=== PATIENT | female | born 1945 | race Caucasian/White ===

== ENCOUNTER 2021-10-21 14:16 | Outpatient (CLI) | payer MEDICARE, SELFPAY ==
[2021-10-21 14:38] LABS: Basophils Absolute Auto 0.1 K/mm3 (0.0-0.1); Basophils Percent Auto 1.4 % (0.2-1.2); Eosinophils Absolute Auto 0.1 K/mm3 (0-0.3); Eosinophils Percent Auto 1.1 % (0-4.4); Hematocrit 44.1 % (37.0-47.0); Hemoglobin 13.7 g/dL (12.0-15.0); Immature Granulocyte Absolute 0.01 K/mm3 (0.00-0.031); Immature Granulocyte Percent A 0.1 % (0-0.5); Lymphocytes Absolute Auto 2.01 K/mm3 (0.9-3.2); Lymphocytes Percent Auto 25.3 % (18.3-44.2); Mean Corpuscular HGB Conc 31.1 g/dl (32-36); Mean Corpuscular Hemoglobin 29.8 pg (26-34); Mean Corpuscular Volume 96.1 fl (80-100); Monocytes Absolute Auto 0.6 K/mm3 (0.1-0.6); Monocytes Percent Auto 7.9 % (2.6-8.5); Neutrophils Absolute Auto 5.1 K/mm3 (1.3-6.7); Neutrophils Percent Auto 64.2 % (45.5-73.1); Platelet Count Result 402 k/mm3 (150-375); Red Blood Count 4.59 M/mm3 (4.2-5.4); Red Cell Distribution Width 12.7 % (11.5-14.5)
[2021-10-21 16:07] LABS: CRP < 0.5 mg/dL (<1.0)
[2021-10-21 16:14] LABS: Iron 96 ug/dL (37-170)
[2021-10-21 16:23] LABS: Percent Iron Saturation 25 % (20-50)
[2021-10-21 16:37] LABS: Erythrocyte Sedimentation Rate 15 mm/hr (0-20)
== END 2021-10-21 14:17 | disposition home or self-care (01) ==
LOC: ANHLAB 14:18
PROVIDERS: PCP Family Medicine; Visit Provider Internal Medicine Hematology & Oncology
DX: D47.3 Essential (hemorrhagic) thrombocythemia (principal)
CPT/HCPCS: 36415; 82728; 83540; 83550; 85025; 85652; 86140

== ENCOUNTER 2022-06-28 14:54 | Observation (INO) | payer MEDICARE, SELFPAY ==
[2022-06-28] VITALS (11 sets, daily range): BP systolic 116–132; BP diastolic 64–95; PULSE 72–95; RESP 12–18; TEMP 36.4–36.8; O2SAT 95–98
--- NOTE | ~2022-06-28 | XR_ITS ---
XR chest 2V DATE: 06/28/2022 18:25 INDICATION: Cough TECHNIQUE: AP and lateral views COMPARISON: 01/22/2009 two-view chest FINDINGS: Normal heart size. Aortic calcification and mild tortuosity. No hilar or mediastinal enlarg ement. Bilateral hyperinflation, increased retrosternal airspace and relative flattening the diaphragm, cons istent with COPD. No pulmonary infiltrate or consolidation, pleural effusion or pulmonary vascular congestion or pneumo thorax is detected. Diffuse osteopenia. Degenerative spurring and scoliosis of the thoracic and lumbar spine. IMPRESSION: COPD Aortic atherosclerosis Diffuse osteopenia Reviewed, dictated and finalized at location A. E IDENTIFIER
--- NOTE | ~2022-06-28 | CT_ITS ---
EXAMINATION: CT brain wo con DATE: 06/28/2022 17:18 INDICATION: Altered mental state. History of dementia. TECHNIQUE: Computed tomography (CT) of the head was performed without intravenous contrast. The mA wa s adjusted according to patient size. Iterative reconstruction technique was employed. Exam dose: 60 5.33 mGy-cm total exam DLP. COMPARISON: 04/23/2019 MR brain FINDINGS: There is extensive calcification of the carotid siphon and supraclinoid internal carotid ar teries as well as bilateral vertebral artery and basilar artery calcifications. There is nonspecific diminished attenuation of the cerebral white matter, likely due to chronic small vessel ischemic changes. Moderate cerebellar and prominent central and cortical cerebral atrophy. No intracranial mass lesion or hemorrhage or cerebrovascular accident. No midline shift or mass effec t. No subdural or epidural hematoma. The orbital contents are unremarkable. Persistent metopic suture, normal variant. Diminutive right frontal sinus. Included paranasal sinuses are otherwise unremarkable. The mastoid air cells are normally developed and aerated. No fracture or bone destruction of the cranial vault. IMPRESSION: Prominent cerebral atherosclerosis Chronic small vessel ischemic changes of the cerebral white matter Moderate cerebellar and more prominent cerebral atrophy No acute intracranial finding Reviewed, dictated and finalized at [facility]. Reviewed, dictated and finalized at location A. SS NURSE
--- NOTE | 2022-06-28 17:04 | ECG_ITS ---
Measurements Intervals [place] Rate: 78 P: 66 FL: 193 QRS: 16 QRSD: 106 T: 43 QT: 410 QTc: 469 Interpretive Statements SINUS RHYTHM T-WAVE ABNORMALITY IN THE ANTERIOR LEADS NO PREVIOUS ECG AVAILABLE FOR COMPARISON Electronically Signed On 06-29-2022 17:48:11 LINUX UN[employer] ADMINISTRATOR by Naomi Welch M.D.
[2022-06-28 17:17] LABS: Basophils Absolute Auto 0.1 K/mm3 (0.0-0.1); Basophils Percent Auto 1.2 % (0.2-1.2); Eosinophils Percent Auto 0.4 % (0-4.4); Hematocrit 40.9 % (37.0-47.0); Hemoglobin 13.4 g/dL (12.0-15.0); Immature Granulocyte Absolute 0.03 K/mm3 (0.00-0.031); Immature Granulocyte Percent A 0.3 % (0-0.5); Lymphocytes Absolute Auto 2.05 K/mm3 (0.9-3.2); Mean Corpuscular HGB Conc 32.8 g/dl (32-36); Mean Corpuscular Hemoglobin 30.2 pg (26-34); Mean Corpuscular Volume 92.3 fl (80-100); Mean Platelet Volume 8.9 fl (7.4-10.4); Monocytes Absolute Auto 0.8 K/mm3 (0.1-0.6); Monocytes Percent Auto 7.1 % (2.6-8.5); Neutrophils Absolute Auto 7.8 K/mm3 (1.3-6.7); Platelet Count Result 406 k/mm3 (150-375); Red Blood Count 4.43 M/mm3 (4.2-5.4); Red Cell Distribution Width 12.8 % (11.5-14.5); White Blood Count 10.8 K/mm3 (4.5-10.0)
[2022-06-28 17:26] LABS: Partial Thromboplastin Time 25.1 SECONDS (22.3-36.8); Prothrombin Time 12.3 Seconds (11.1-14.7)
[2022-06-28 17:28] LABS: Alanine Aminotransferase 17 U/L (6-35); Albumin Level 4.4 g/dL (3.5-5.1); Alkaline Phosphatase 79 U/L (38-126); Anion Gap 5 mmol/L (8-16); Aspartate Amino Transferase 25 U/L (14-36); Bilirubin,Total 0.4 mg/dL (0.2-1.3); Blood Urea Nitrogen 12 mg/dL (7-17); Calcium 9.1 mg/dL (8.4-10.2); Carbon Dioxide 30 mmol/L (22-30); Chloride 101 mmol/L (98-107); Estimated CRCL calculation 55 ml/min; Estimated Glomerular Filt Rate > 60; Glucose 107 mg/dL (65-110); Potassium 3.4 mmol/L (3.4-5.0); Sodium 136 mmol/L (137-145)
--- NOTE | 2022-06-28 17:47 | ED.AMS ---
HPI - Altered Mental Status General Chief Complaint: Altered Mental Status <Farrah Toney PA-C - Last Filed: 06/28/22 19:27> Stated Complaint: increased dementia today <HARMEET Jaime Last Filed: 06/28/22 19:27> Time Seen by Provider: 06/28/22 17:04 <Farrah Toney PA-C - Last Filed: 06/28/22 19:27> Source: patient and EMS <HARMEET Jaime Last Filed: 06/28/22 19:27> Mode of arrival: EMS <HARMEET Jamie Last Filed: 06/28/22 19:27> Limitations: dementia <HARMEET Jaime Last Filed: 06/28/22 19:27> History of Present Illness HPI narrative: This is a 76 year old female that presents to the ER for increased confusion. Patient does have history of baseline dementia. Reportedly patient's family talked to her on the phone today and were concerned that she seemed more confused than usual so they called EMS to bring her in to be evaluated. Patient currently has no complaints. Denies fever, chest pain, shortness of breath, abdominal pain, vomiting or dysuria. <HARMEET Jaime Last Filed: 06/28/22 19:27> Related Data Home Medications: Home Medications Medication Instructions Recorded Confirmed cholecalciferol (vitamin D3) 50 2,000 unit PO DAILY 07/23/19 11/01/21 mcg (2,000 unit) capsule (Vitamin D3) aspirin 81 mg tablet,delayed 81 mg PO DAILY 11/01/21 11/01/21 release <HARMEET Jaime Last Filed: 06/28/22 19:27> Allergies/Adverse Reactions: Allergies Allergy/AdvReac Type Severity Reaction Status Date / Time alendronate sodium Allergy Unknown rash Verified 12/23/21 13:45 aspirin Allergy Unknown unknown Verified 12/23/21 13:45 Ozhmhfv-YZB-EbA Reductase Allergy Unknown Nausea And Verified 12/23/21 13:45 Inhibitor Vomiting [Mwubqqw-Nkb-Nbd Reductase Inhibitor] <HARMEET Jaime Last Filed: 06/28/22 19:27> Review of Systems Review of Systems: CONSTITUTIONAL: Denies fever ENT: Denies rhinorrhea, congestion, sore throat CARDIOVASCULAR: Denies chest pain, or edema. RESPIRATORY: Denies cough or dyspnea. GASTROINTESTINAL: Denies abdominal pain, nausea, vomiting GENITOURINARY: Denies dysuria NEUROLOGIC: Denies numbness, or weakness. <Farrah Toney PA-C - Last Filed: 06/28/22 19:27> All systems reviewed & are unremarkable except as noted in HPI and below <Farrah Toney PA-C - Last Filed: 06/28/22:27> PMFSH Past Medical History Medical History: Medical History B12 deficiency Essential (primary) hypertension Hyperlipidemia Thrombocytosis Vascular dementia Vitamin D deficiency <Farrah Toney PA-C - Last Filed: 06/28/22 19:27> Surgical History Surgical History: Surgical History H/O cataract extraction <Farrah Toney PA-C - Last Filed: 06/28/22 19:27> Family History Family History: Family History Father Cancer of unknown origin <Farrah Toney PA-C - Last Filed: 06/28/22 19:27> Social History Social History: Social History Smoking status: Current some day smoker Tobacco type: cigarettes (smokes the same cigarette for a few days when nervous) Second hand tobacco smoke exposure: No Alcohol intake: current <Farrah Toney PA-C - Last Filed: 06/28/22 19:27> Exam Narrative: GENERAL: Elderly, well-nourished, and in no acute distress. HEAD: Normocephalic, atraumatic. EYES: PERRLA and EOMI. ENT: Nares clear, no rhinorrhea or epistaxis. Mucous membranes moist. Oropharynx without tonsillar hypertrophy exudate or other lesions. Bilateral TMs pearly cox non-bulging NECK: Supple. No adenopathy or masses. CHEST: Clear to auscultation. No respiratory distress. No wheezes rales or rhonchi HEART: Regular rate and rhythm. No mu
[2022-06-28 18:06] LABS: Add Urine Microscopic? YES; Appearance Urine Clear (Clear); Bilirubin Urine Negative (Negative); Blood Urine Negative (Negative); Color Urine Light Yellow (Yellow); Glucose Urine UA Negative (Negative); Ketones Urine Trace mg/dL (Negative); Leukocyte Esterase Ur Negative LEU/UL (Negative); Nitrate Urine Negative (Negative); Protein Urine Negative (Negative); Urobilinogen Urine 0.2 mg/dL (<2.0)
[2022-06-28 18:10] LABS: Squamous Epithelial Cell Urine Moderate /hpf (Few)
[2022-06-28 18:35] LABS: Influenza A QL RT-PCR Negative (Negative); Influenza B QL RT-PCR Negative (Negative); SARS-CoV-2 RNA PCR Negative
--- NOTE | 2022-06-28 19:05 | PC.NURSE ---
Notified provider about Pt. continuing to try to get out of bed multiple times looking for her sister. No new orders at this time.
[2022-06-28] MEDS: LORazepam (*CRX) 0.5 MG TABLET PO (19:24)
--- NOTE | 2022-06-28 20:32 | PM.IMHP ---
H&P: HPI History of Present Illness Date/Time: 06/28/22 20:32 Chief Complaint: Altered mental status, unable to care for self. Narrative: This is a 76-year-old lady with a past medical history including but not limited to dementia, hypertension, anxiety, vitamin-D deficiency, vitamin-B deficiency depression, dyslipidemia, was brought into the emergency department by her sister, who is also her caregiver. The patient currently lives alone. The patient's sister prove I answer assistance with grocery shopping and managing finances. Her mental status has been worsening over the last few months. She was found wandering, looking for a dog was passed 2 months ago. She was brought in to the ER due to worsening confusion. Patient is confused and history and physical is gathered from the ED chart. Apparently, the patient does have history of dementia at baseline. Reportedly patient's family talked to her on the phone today and were concerned that she seemed more confused than usual so they called EMS to bring her in to be evaluated. Patient currently has no complaints. Denies fever, chest pain, shortness of breath, abdominal pain, vomiting or dysuria. In the emergency department the patient is stable and afebrile with the following vital signs: A temperature of 98.2? 5 x 9, pulse rate 80, respiratory rate 16, blood pressure 118/95, pulse oximetry 96% on room air. Her CBC shows a WBC of 10.8, hemoglobin 13.4, hematocrit 40.9, and a platelet count of 406. Her chemistry shows a sodium of 136, potassium 3.4, chloride 101, carbon by oxide 30, BUN 12, creatinine 0.7. Urinalysis was clear, negative for nitrate, leukocyte esterase, glucose. Chest x-ray reveals aortic atherosclerosis and diffuse osteopenia. There was no pulmonary infiltrate or consolidation, pleural effusion or pulmonary vascular congestion or pneumothorax detected. A CT of the brain shows extensive calcification of the carotid siphon and supraclinoid internal carotid arteries as well as bilateral vertebral artery and basilar artery calcifications. There is prominent cerebral atherosclerosis. Chronic small-vessel ischemic changes of the cerebral white matter. Moderate cerebral ordered more prominent cerebral atrophy. No acute intracranial finding. EKG reveals a normal sinus rhythm. Possible inferior myocardial infarction, probably old with posterior extension. No previous EKG available for comparison. Review of Systems Review of Systems: All systems reviewed & are unremarkable except as noted in HPI and below Eyes: Eyes: Reports as per HPI and Denies blurry vision ENT: Reports system reviewed and no additional complaints, except as documented, Reports as per HPI, Denies dysphagia, Denies epistaxis and Denies nasal congestion Cardiovascular: Cardiovascular: Reports as per HPI, Reports no additional cardiovascular complaints, Denies chest pain, Denies leg edema, Denies lightheadedness and Denies palpitations Respiratory: Respiratory: Reports as per HPI, Denies cough, Denies dyspnea and Denies wheezing Gastrointestinal: Gastrointestinal: Reports as per HPI, Reports no additional gastrointestinal complaints, Denies diarrhea, Denies nausea and Denies vomiting Genitourinary: Genitourinary: Reports no additional female genitourinary complaints and Denies dysuria Musculoskeletal: Musculoskeletal: Reports no additional musculoskeletal complaints, Denies back pain, Denies arthralgias and Denies neck pain Integumentary/Breasts: Skin/Breast: Reports system reviewed and no additional complaints, except as docu and Denies rash Neurologic: Reports system reviewed and no additional complaints, except as documented, Reports as per HPI, Reports confusion, Denies headache(s) and Denies numbness PMFSH Past Medical History Medical History B12 deficiency Essential (primary) hypertension Hyperlipidemia Thrombocytosis Vascular dementia Vitamin D deficiency
--- NOTE | 2022-06-28 23:12 | ADMGEN ---
This patient, Christen Gonzalez, was admitted to 3 [facility] Surg Room 304-02. Patient/family oriented to hospital policies and general routines including ID bracelet, bed and alarms, visiting hours, pain management, procedures, bathroom and other care routines, personal items, smoking policy, room service/diet, and visiting hours. Information on how to activate the Rapid Response Team has been discussed. Patient/Family are encouraged to report perceived risks to care and to ask questions if they do not understand what they are told or what they should do.
[2022-06-29 00:08] VITALS: PULSE 84; RESP 16; O2SAT 95
[2022-06-29 05:34] VITALS: BP 102/59; PULSE 82; RESP 16; TEMP 36.6; O2SAT 95
[2022-06-29 07:21] LABS: Anion Gap 5 mmol/L (8-16); Blood Urea Nitrogen 11 mg/dL (7-17); Calcium 8.8 mg/dL (8.4-10.2); Carbon Dioxide 29 mmol/L (22-30); Chloride 103 mmol/L (98-107); Estimated CRCL calculation 51 ml/min; Estimated Glomerular Filt Rate > 60; Glucose 89 mg/dL (65-110); Potassium 3.4 mmol/L (3.4-5.0); Sodium 137 mmol/L (137-145)
[2022-06-29] MEDS: ASPIRIN 81 MG ENTERIC TABLET PO (09:54)
[2022-06-29] MEDS: FLUoxetine HCL 20 MG CAPSULE PO (09:54)
[2022-06-29] MEDS: MEMANTINE 5 MG TABLET PO (09:54)
[2022-06-29 14:00] VITALS: BP 130/64; PULSE 86; RESP 18; TEMP 36.5; O2SAT 92
--- NOTE | 2022-06-29 15:01 | PM.IMPN ---
Progress Note: A&P Assessment and Plan (1) Altered mental status: Qualifiers: Altered mental status type: unspecified Qualified Code(s): R41.82 - Altered mental status, unspecified Code(s): R41.82 - Altered mental status, unspecified Status: Acute Assessment and Plan: Patient carries a known diagnosis of dementia. she lives alone but requires family support. Patient was found wandering around the streets looking for her dog who unfortunately about [address] on presentation showed moderate cerebellar and more prominent cerebral atrophy with no acute intracranial findings. Suspect this presentation of symptoms is due to worsening dementia. patient unable to care for herself independently at home. Care coordination working to arrange respite care. (2) Dementia: Qualifiers: Dementia behavioral or psychological symptom: with other behavioral disturbance Dementia severity: unspecified severity Dementia type: unspecified type Qualified Code(s): F03.918 - Unspecified dementia, unspecified severity, with other behavioral disturbance Code(s): F03.90 - Unspecified dementia, unspecified severity, without behavioral disturbance, psychotic disturbance, mood disturbance, and anxiety Status: Acute Assessment and Plan: Progressively worsening. Continue memantine. See plan as above. (3) Anxiety and depression: Code(s): F41.9 - Anxiety disorder, unspecified; F32.9 - Major depressive disorder, single episode, unspecified Status: Chronic Assessment and Plan: Likely worsened due to recent passing of the patient's dog. continue fluoxetine and lorazepam. Mood is stable at this time. (4) Essential (primary) hypertension: Code(s): I10 - Essential (primary) hypertension Status: Chronic Assessment and Plan: Blood pressures have been reasonably well controlled. Continue home regimen consisting of metoprolol succinate, hydrochlorothiazide, and lisinopril (5) B12 deficiency: Code(s): E53.8 - Deficiency of other specified B group vitamins Status: Chronic Assessment and Plan: Vitamin B12 levels within normal limits (471). Patient does not appear to be on any oral B12 supplementation Subjective Date/time seen: 06/29/22 15:01 Interval history: date of service: 06/29/2022 Christen Gonzalez is a 76-year-old female with a history of hypertension, hyperlipidemia, thrombocytosis, B12 deficiency, and vascular dementia who is seen in follow-up for altered mental status. Patient is pleasantly confused today. She did not know she was in the hospital and when I informed her that she was in the hospital, she became concerned saying she did to figure out how she could get home. She is up and walking around her room organizing her papers into piles and making her bed. Per nursing report, she has been up and active throughout the morning. she is steady on her feet. no agitation. she was moved to a seat at the nurse's station and is doing well there. Review of Systems Review of Systems: All systems reviewed & are unremarkable except as noted in HPI and below Exam Narrative: General: Well-nourished, well-appearing 76-year-old female, standing up walking around her room, comfortable, NARD Neuro: awake, alert and oriented to self only, speech clear, no focal neuro deficits HEENMT: normocephalic, atraumatic, EOMI, sclerae anicteric Respiratory: clear to auscultation bilaterally, nonlabored breathing Cardio: regular rate, regular rhythm with S1-S2 Abdomen: nondistended, normoactive bowel sounds, soft, nontender to palpation Extremities: no edema, erythema, or tenderness to palpation Skin: no rashes or lesions, warm and dry Psych: pleasantly confused Objective Data Vital Signs Vital Signs: Vital Signs - 24 hr 06/28/22 15:23 06/28/22 16:54 06/28/22 17:04 Temperature 98.2 F Pu
[2022-06-29 20:00] VITALS: PULSE 86; RESP 18; O2SAT 92
[2022-06-29 22:43] VITALS: BP 112/54; PULSE 89; RESP 18; TEMP 36.2; O2SAT 95
[2022-06-30 03:56] VITALS: BP 132/61; PULSE 97; RESP 18; TEMP 36.4; O2SAT 98
[2022-06-30 06:36] LABS: Hematocrit 41.3 % (37.0-47.0); Hemoglobin 13.3 g/dL (12.0-15.0); Mean Corpuscular HGB Conc 32.2 g/dl (32-36); Mean Corpuscular Volume 93.2 fl (80-100); Mean Platelet Volume 9.3 fl (7.4-10.4); Platelet Count Result 394 k/mm3 (150-375); Red Blood Count 4.43 M/mm3 (4.2-5.4); Red Cell Distribution Width 12.8 % (11.5-14.5)
[2022-06-30 06:50] LABS: Anion Gap 7 mmol/L (8-16); Blood Urea Nitrogen 13 mg/dL (7-17); Carbon Dioxide 29 mmol/L (22-30); Chloride 103 mmol/L (98-107); Estimated CRCL calculation 58 ml/min; Estimated Glomerular Filt Rate > 60; Glucose 89 mg/dL (65-110); Potassium 3.3 mmol/L (3.4-5.0); Sodium 139 mmol/L (137-145)
[2022-06-30] MEDS: FLUoxetine HCL 20 MG CAPSULE PO (08:22)
[2022-06-30] MEDS: MEMANTINE 5 MG TABLET PO (08:22)
[2022-06-30] MEDS: POTASSIUM CHLORIDE 20 MEQ TABLET PO (08:22)
[2022-06-30] MEDS: ENOXAPARIN 40 MG/0.4 ML SYRINGE SUB-Q (08:24)
[2022-06-30] MEDS: ASPIRIN 81 MG ENTERIC TABLET PO (08:24)
--- NOTE | 2022-06-30 08:56 | PM.DS ---
DS: Admitting Diagnosis Discharge Date 06/30/2022 Admitting Diagnosis Altered mental status DS: Discharge Diagnosis Discharge Diagnosis (1) Altered mental status: Qualifiers: Altered mental status type: unspecified Qualified Code(s): R41.82 - Altered mental status, unspecified Code(s): R41.82 - Altered mental status, unspecified Status: Acute Assessment and Plan: Patient carries a known diagnosis of dementia. She lives alone but requires family support. Patient was found wandering around the streets looking for her dog who unfortunately about [address] on presentation showed moderate cerebellar and more prominent cerebral atrophy with no acute intracranial findings. Suspect this presentation of symptoms is due to worsening dementia. Patient no longer able to care for herself independently at home. Respite care arranged per care coordination at [facility] (2) Dementia: Qualifiers: Dementia behavioral or psychological symptom: with other behavioral disturbance Dementia severity: unspecified severity Dementia type: unspecified type Qualified Code(s): F03.918 - Unspecified dementia, unspecified severity, with other behavioral disturbance Code(s): F03.90 - Unspecified dementia, unspecified severity, without behavioral disturbance, psychotic disturbance, mood disturbance, and anxiety Status: Chronic Assessment and Plan: Progressively worsening. Continue memantine. See above. (3) Anxiety and depression: Code(s): F41.9 - Anxiety disorder, unspecified; F32.9 - Major depressive disorder, single episode, unspecified Status: Chronic Assessment and Plan: Likely worsened due to recent passing of the patient's dog. Continue fluoxetine and lorazepam. Mood remained stable during admission. (4) Essential (primary) hypertension: Code(s): I10 - Essential (primary) hypertension Status: Chronic Assessment and Plan: Blood pressures reviewed and remained stable. Continue home regimen consisting of metoprolol succinate, hydrochlorothiazide, and lisinopril (5) B12 deficiency: Code(s): E53.8 - Deficiency of other specified B group vitamins Status: Chronic Assessment and Plan: Vitamin B12 levels within normal limits (471). Patient does not appear to be on any oral B12 supplementation DS: Summary Hospital Course Hospital Course: date of admission: 06/28/2022 date of discharge: 06/30/2022 Christen Gonzalez is a 76-year-old female with a history of hypertension, hyperlipidemia, thrombocytosis, B12 deficiency, and vascular dementia who presented to the emergency department on 06/28/2022 due to increased confusion per family report. Patient was found wandering around and family reports patient is not able to continue living at home independently due to safety concerns. On presentation to the ED, her vital signs were stable, she was afebrile, laboratory workup unremarkable, UA without concerns for infection, head CT with no acute findings. she was admitted to the hospitalist service for further evaluation and management. Please see above for further details. Because patient was not able to return home, respite care was arranged per care coordination. Patient was discharged to [facility] in hemodynamically stable condition on 06/30/2022. Time Spent with Patient Time attestation: Total time spent providing and/or coordinating discharge services: 38 minutes Time spent: Greater than 30 minutes Exam Narrative: General: Well-nourished, well-appearing 76-year-old female, standing up walking around her room, comfortable, NARD Neuro: awake, alert and oriented to self only, speech clear, no focal neuro deficits HEENMT: normocephalic, atraumatic, EOMI, sclerae anicteric Respiratory: clear to auscultation bilaterally, nonlabored breathing Cardio: regular rate, regular rhythm wit
[2022-07-06 11:48] LABS: Red Blood Cell Folate 660 ng/mL RBC (>280)
== END 2022-06-30 11:25 | disposition home or self-care (01) ==
LOC: ANHED 19:25 → ANH3MEDSUR 22:32
PROVIDERS: Physician Assistant; Admitting Provider Internal Medicine; Emergency Provider Emergency Medicine; PCP Family Medicine; Visit Provider Physician Assistant
DX: R41.82 Altered mental status, unspecified (principal); G31.89 Other specified degenerative diseases of nervous system; F01.50 Vascular dementia, unspecified severity, without behavioral disturbance, psychotic disturbance, mood disturbance, and anxiety; E53.8 Deficiency of other specified B group vitamins; I10 Essential (primary) hypertension; I67.2 Cerebral atherosclerosis; E78.5 Hyperlipidemia, unspecified; Z20.822 Contact with and (suspected) exposure to COVID-19; D75.839 Thrombocytosis, unspecified; Z79.899 Other long term (current) drug therapy; R90.82 White matter disease, unspecified; F41.9 Anxiety disorder, unspecified; F32.A Depression, unspecified; E55.9 Vitamin D deficiency, unspecified; R94.31 Abnormal electrocardiogram [ECG] [EKG]; M85.80 Other specified disorders of bone density and structure, unspecified site; F17.210 Nicotine dependence, cigarettes, uncomplicated; F10.90 Alcohol use, unspecified, uncomplicated; Z79.82 Long term (current) use of aspirin; I70.0 Atherosclerosis of aorta; F22 Delusional disorders; G47.00 Insomnia, unspecified
CPT/HCPCS: 36415; 51701; 70450; 71046; 80048; 80053; 81001; 82607; 82747; 85025; 85027; 85610; 85730; 87636; 93005; 96372; 99285; A9270; G0378; J1650

== ENCOUNTER 2023-02-18 10:08 | Emergency (ER) | payer MEDICARE, SELFPAY ==
[2023-02-18] VITALS (34 sets, daily range): BP systolic 112–143; BP diastolic 66–106; PULSE 60–79; RESP 12–21; TEMP 36.9; O2SAT 90–100
--- NOTE | ~2023-02-18 | XR_ITS ---
EXAMINATION: XR pelvis 1-2V INDICATION: Pelvic pain TECHNIQUE: AP view of the pelvis is obtained. COMPARISON: None available FINDINGS: Bone alignment is normal. There is no fracture. There is moderate osteoarthritis of the lef t hip and mild osteoarthritis of the right hip. Phleboliths are noted in the pelvis. There is at leas t moderate lumbar spondylosis. Calcified atherosclerosis is noted. IMPRESSION: 1. No acute osseous abnormality. Reviewed, dictated and finalized at location A.
--- NOTE | ~2023-02-18 | CT_ITS ---
EXAMINATION: CT cervical spine wo con DATE: 02/18/2023 11:10 INDICATION: Head injury TECHNIQUE: Computed tomography (CT) of the cervical spine was performed without intravenous contrast. The dose-length product (DLP) was 128.20 mGy-cm. Automated exposure control and iterative reconstruc tion technique were employed. COMPARISON: None FINDINGS: There is 1 mm of anterolisthesis of C6 on C7. There are 2 mm of retrolisthesis of C4 on C5. There is no fracture. There is moderate loss of intervertebral disc space height at C4-5, C6-7, and C7-T1. The odontoid process is intact. There is multilevel moderate facet and uncovertebral joint ost eoarthritis. There is a 4 cm nodule of the right thyroid lobe. There is moderate emphysema of the vis ualized lung apices. IMPRESSION: 1. Mild cervical spondylosis without acute findings. 2. Right thyroid nodule. Consider nonemergent thyroid ultrasound for risk stratification. Reviewed, dictated and finalized at location A. IMPRESSION: 1. Mild cervical spondylosis without acute findings. 2. Right thyroid nodule. Consider nonemergent thyroid ultrasound for risk strat ification.
--- NOTE | ~2023-02-18 | XR_ITS ---
EXAMINATION: XR elbow RT min 3V INDICATION: Right elbow pain TECHNIQUE: Four views of the right elbow are obtained. COMPARISON: None available FINDINGS: No fracture, dislocation, or subluxation. The bones, soft tissues, and joint spaces are nor mal. IMPRESSION: 1. No acute osseous abnormality. Reviewed, dictated and finalized at location A.
--- NOTE | ~2023-02-18 | CT_ITS ---
EXAMINATION: CT brain wo con INDICATION: Head injury COMPARISON: 06/28/2022 TECHNIQUE: Standard unenhanced head CT. The dose-length product (DLP) was 605.33 mGy-cm. The mA was a djusted according to patient size. Iterative reconstruction technique was employed. FINDINGS: There is no acute intraparenchymal hemorrhage. No evidence of mass lesion. No evidence of a cute infarction. There is soft tissue swelling of the right for head. There is moderate periventricul ar and subcortical hypodensity probably related to small vessel ischemic disease. There is moderate p rominence of the sulci and ventricles related to cerebral atrophy. Intracranial calcified cerebral at herosclerosis is noted. There are no extra-axial collections. There is no mass effect or midline shif t. Changes in the globes are likely from ocular lens surgery. The visualized sinuses and mastoid air cells are well aerated. IMPRESSION: 1. No acute intracranial abnormality. 2. Age related findings. Reviewed, dictated and finalized at location A.
--- NOTE | ~2023-02-18 | XR_ITS ---
EXAMINATION: XR chest 1V INDICATION: Chest pain TECHNIQUE: Frontal view of the chest is obtained. COMPARISON: 06/28/2022 FINDINGS: There is a small left pleural effusion. The lungs are free of acute opacities. No pneumotho rax is identified. The cardiomediastinal silhouette is normal. IMPRESSION: 1. Small left pleural effusion. Reviewed, dictated and finalized at location A.
--- NOTE | 2023-02-18 10:16 | ECG_ITS ---
Measurements Intervals [place] Rate: 65 P: 62 CT: 206 QRS: 8 QRSD: 99 T: 42 QT: 410 QTc: 429 Interpretive Statements SINUS RHYTHM NORMAL ECG COMPARED TO ECG 06/28/2022 17:30:07 NO SIGNIFICANT CHANGES Electronically Signed On 02-18-2023 12:41:14 CDT by Peña Ricketts M.D.
[2023-02-18 10:29] LABS: Basophils Absolute Auto 0.1 K/mm3 (0.0-0.1); Basophils Percent Auto 0.9 % (0.2-1.2); Eosinophils Absolute Auto 0.1 K/mm3 (0-0.3); Eosinophils Percent Auto 1.1 % (0-4.4); Hematocrit 37.7 % (37.0-47.0); Hemoglobin 11.8 g/dL (12.0-15.0); Immature Granulocyte Absolute 0.02 K/mm3 (0.00-0.031); Immature Granulocyte Percent A 0.2 % (0-0.5); Lymphocytes Percent Auto 17.7 % (18.3-44.2); Mean Corpuscular HGB Conc 31.3 g/dl (32-36); Mean Corpuscular Hemoglobin 29.2 pg (26-34); Mean Corpuscular Volume 93.3 fl (80-100); Mean Platelet Volume 9.1 fl (7.4-10.4); Monocytes Absolute Auto 0.7 K/mm3 (0.1-0.6); Monocytes Percent Auto 7.7 % (2.6-8.5); Neutrophils Percent Auto 72.4 % (45.5-73.1); Platelet Count Result 319 k/mm3 (150-375); Red Blood Count 4.04 M/mm3 (4.2-5.4); Red Cell Distribution Width 13.2 % (11.5-14.5); White Blood Count 9.6 K/mm3 (4.5-10.0)
[2023-02-18 10:40] LABS: Alanine Aminotransferase 16 U/L (6-35); Albumin Level 3.8 g/dL (3.5-5.1); Alkaline Phosphatase 74 U/L (38-126); Anion Gap 1 mmol/L (8-16); Aspartate Amino Transferase 26 U/L (14-36); Bilirubin,Total 0.4 mg/dL (0.2-1.3); Blood Urea Nitrogen 17 mg/dL (7-17); Carbon Dioxide 27 mmol/L (22-30); Chloride 107 mmol/L (98-107); Estimated Glomerular Filt Rate > 60; Glucose 97 mg/dL (65-110); Sodium 135 mmol/L (137-145)
--- NOTE | 2023-02-18 10:53 | ED.FALL ---
HPI - Fall General Chief Complaint: Fall Stated Complaint: ?fall History of Present Illness HPI Narrative: This is a 77-year-old female, with past history of dementia and hypertension, brought in by EMS for a fall at her longterm. It is unclear when the patient fell. Staff at the longterm believes it was overnight. The patient does not recall falling and has no complaints. EMS reports the patient is at her baseline orientation to self. Vital signs reported as within normal limits. Related Data Home Medications Medication Instructions Recorded Confirmed aspirin 81 mg tablet,delayed 81 mg PO DAILY 11/01/21 06/28/22 release Allergies Allergy/AdvReac Type Severity Reaction Status Date / Time alendronate sodium Allergy Unknown rash Verified 12/23/21 13:45 Bmpavqt-JWU-ReB Reductase Allergy Unknown Nausea And Verified 12/23/21 13:45 Inhibitor Vomiting [Embdxxv-Ihi-Nas Reductase Inhibitor] Review of Systems Review of Systems: Review of systems limited due to patient's altered mental status CARDIOVASCULAR: Denies chest pain, palpitations, or edema. RESPIRATORY: Denies cough or dyspnea. GASTROINTESTINAL: Denies abdominal pain, nausea, vomiting, or diarrhea. GENITOURINARY: Denies dysuria or hematuria. PSYCHIATRIC: Denies anxiety or depression. PMFSH Past Medical History Medical History B12 deficiency Essential (primary) hypertension Hyperlipidemia Thrombocytosis Vascular dementia Vitamin D deficiency Surgical History Surgical History H/O cataract extraction Family History Family History Father Cancer of unknown origin Social History Social History Smoking status: Current some day smoker Tobacco type: cigarettes Second hand tobacco smoke exposure: No Alcohol intake: unknown Substance use: unknown Spiritual care concerns: No Exam Narrative: GENERAL: Well-developed, well-nourished, and in no acute distress. HEAD: Normocephalic, there is a 3 x 5 cm hematoma noted to the right frontal scalp without laceration or abrasion. EYES: PERRLA and EOMI. ENT: Nares clear, no rhinorrhea or epistaxis. Mucous membranes moist. Oropharynx without tonsillar hypertrophy exudate or other lesions. NECK: Supple. No adenopathy or masses. No JVD. No midline spine tenderness to palpation, no step-off or crepitus CHEST: Clear to auscultation. No respiratory distress. No wheezes rales or rhonchi HEART: Regular rate and rhythm. No murmur heard. Normal peripheral pulses. ABDOMEN: Soft, nontender, nondistended, normal active bowel sounds. BACK: No midline spine tenderness to palpation, no step-off or crepitus EXTREMITIES: Superficial abrasions are noted over the posterior lateral aspect of the right elbow. Normal range of motion of all joints. No edema. SKIN: Warm, dry, no rash. NEURO: Alert and oriented x3. Strength 5/5 in all extremities, sensation intact bilaterally, no noted ataxia. Cranial nerves II through XII intact PSYCH: Normal mood and affect. Course Course Emergency Course: 13:22 - Chest x-ray not concerning for pneumonia. CT head negative for fracture or intracranial hemorrhage. CT cervical spine negative for fracture or dislocation. X-ray of the pelvis and the elbow not concerning for fractures or dislocations. History is demonstrate mild hyponatremia with a sodium of 135 but otherwise unremarkable. UA (obtained after attempted straight cath) is not concerning for UTI. EKG not concerning for arrhythmia. CBC demonstrates anemia with hemoglobin of 11.8 with baseline of 13. I discussed these findings with MADDY Teague at the patient's longterm ([facility]). She is comfortable with the patient returning. Will discharge. Vital Sign
--- NOTE | 2023-02-18 11:00 | PC.NURSE ---
Spoke with MADDY Teague from [facility], who wanted an update on pts condition.
[2023-02-18 12:39] LABS: Appearance Urine Clear (Clear); Bacteria Urine 2+ /hpf; Bilirubin Urine Negative (Negative); Blood Urine Negative (Negative); Color Urine Yellow (Yellow); Glucose Urine UA Negative (Negative); Ketones Urine Negative (Negative); Leukocyte Esterase Ur 1+ LEU/UL (Negative); Mucus Urine Present /lpf; Nitrate Urine Negative (Negative); Protein Urine Negative (Negative); Specific Grav Ur 1.017 (1.001-1.035); Squamous Epithelial Cell Urine Occasional /hpf (Few); Urobilinogen Urine 0.2 mg/dL (<2.0)
[2023-02-18 12:45] LABS: Add Urine Microscopic? YES
--- NOTE | 2023-02-18 12:45 | PC.NURSE ---
Pt arrived wearing a fentanyl patch from home on the L buttocks.
[2023-02-18] MEDS: TETANUS,DIPHTHERIA,AC PERTUSSIS ADULT (0.5 ML) BOOSTRIX IM (13:25)
--- NOTE | 2023-02-18 13:36 | PC.NURSE ---
Spoke with MADDY Teague at [facility] and gave report on pt.
== END 2023-02-18 16:00 ==
PROVIDERS: Emergency Provider Preventive Medicine Aerospace Medicine; PCP Family Medicine
DX: S00.83XA Contusion of other part of head, initial encounter (principal); S50.311A Abrasion of right elbow, initial encounter; Z23 Encounter for immunization; F01.50 Vascular dementia, unspecified severity, without behavioral disturbance, psychotic disturbance, mood disturbance, and anxiety; I10 Essential (primary) hypertension; E53.8 Deficiency of other specified B group vitamins; E78.5 Hyperlipidemia, unspecified; E55.9 Vitamin D deficiency, unspecified; F17.210 Nicotine dependence, cigarettes, uncomplicated; R82.998 Other abnormal findings in urine; Z98.49 Cataract extraction status, unspecified eye; E04.1 Nontoxic single thyroid nodule; M47.812 Spondylosis without myelopathy or radiculopathy, cervical region; W19.XXXA Unspecified fall, initial encounter
CPT/HCPCS: 36415; 70450; 71045; 72125; 72170; 73080; 80053; 81001; 85025; 87086; 90471; 90715; 93005; 99284

== ENCOUNTER 2023-03-31 05:26 | Emergency (ER) | payer MEDICARE, SELFPAY ==
--- NOTE | ~2023-03-31 | CT_ITS ---
CT head without contrast Indication: Status post fall COMPARISON: 02/18/2023 Technique: Serial scans were obtained through the brain without the administration of contrast. Dose reduction technique was used on this scan by utilizing automated exposure control and iterative recon struction technique. The dose-length product (DLP) was 605.33 mGy-cm. Findings: There is no evidence of intracranial hemorrhage, mass lesion, or acute infarct. The ventri cles and subarachnoid spaces are dilated, consistent with mild atrophy. Low attenuation regions are seen within the periventricular white matter bilaterally, likely representing changes from chronic mi crovascular ischemic disease. There is no evidence of edema, mass effect or midline shift. The visu alized paranasal sinuses and mastoid air cells are clear. There is soft tissue swelling/hematoma at t he right frontal scalp. Impression: No intracranial hemorrhage, mass, or acute infarct. Atrophy and chronic white matter changes, as above. Soft tissue swelling/hematoma at the right frontal scalp. Reviewed, dictated and finalized at location . Impression: No intracranial hemorrhage, mass, or acute infarct. Atrophy and chronic white matter changes, as above. Soft tissue swelling/hematoma at the right frontal scalp.
--- NOTE | ~2023-03-31 | CT_ITS ---
CT Facial Bones and Cervical Spine Clinical Indication: Status post fall Technique: Contiguous axial scans were obtained through the facial bones and cervical spine followed by coronal and sagittal reconstructions. Dose reduction technique was used on this scan by utilizing automated exposure control and iterative reconstruction technique. The dose-length product (DLP) was 244.04 mGy-cm. Findings: CT facial bones: No fractures are identified. The visualized paranasal sinuses are clear. Intraorbita l soft tissues appear normal. CT cervical spine: No fractures or subluxation. There is multilevel facet arthropathy throughout the cervical spine. There is right neural foraminal narrowing at C4-C5.. The intervertebral disc spaces are preserved. No prevertebral soft tissue swelling. Mild emphysema noted. Probable large right thyr oid lobe nodule present. Impression: No fracture is seen in the facial bones. No fracture or subluxation of the cervical spine. Mild degenerative spondylosis, as above. Probable large right thyroid lobe nodule. Consider follow-up thyroid ultrasound as indicated. Reviewed, dictated and finalized at location . Impression: No fracture is seen in the facial bones. No fracture or subluxation of the cervical spine. Mild degenerative spondylosis, as above. Probable large right thyroid lobe nodule. Consider follow-up thyroid ultrasound as indicated.
[2023-03-31 05:21] VITALS: BP 141/75; PULSE 86; RESP 16; TEMP 36.3; O2SAT 95
--- NOTE | 2023-03-31 05:33 | PC.NURSE ---
Per the [facility] paperwork the patient takes 81mg aspirin daily and is allergic to aspirin
[2023-03-31 07:20] VITALS: BP 143/70; PULSE 81; RESP 24; O2SAT 100
--- NOTE | 2023-03-31 07:30 | ED.FALL ---
HPI - Fall General Chief Complaint: Fall Stated Complaint: fall, head trauma Time Seen by Provider: 03/31/23 05:37 History of Present Illness HPI Narrative: 77-year-old female presented the ED from [facility] for evaluation after having a ground-level fall. Patient denies any pain or injury. Patient does not recall a fall. Patient does have a hematoma and abrasion at the right forehead. Patient denies any complaints at this time Related Data Home Medications Medication Instructions Recorded Confirmed aspirin 81 mg tablet,delayed 81 mg PO DAILY 11/01/21 06/28/22 release Allergies Allergy/AdvReac Type Severity Reaction Status Date / Time alendronate sodium Allergy Unknown rash Verified 12/23/21 13:45 aspirin Allergy Other Verified 03/31/23 05:32 Lkavlxr-CKM-DxN Reductase AdvReac Unknown Nausea And Verified 02/18/23 13:25 Inhibitor Vomiting [Txjbsni-Gqy-Lzl Reductase Inhibitor] Review of Systems Review of Systems: All systems reviewed & are unremarkable except as noted in HPI and below PMFSH Past Medical History Medical History B12 deficiency Essential (primary) hypertension Hyperlipidemia Thrombocytosis Vascular dementia Vitamin D deficiency Surgical History Surgical History H/O cataract extraction Family History Family History Father Cancer of unknown origin Social History Social History Smoking status: Current some day smoker Tobacco type: cigarettes Second hand tobacco smoke exposure: No Alcohol intake: unknown Substance use: unknown Spiritual care concerns: No Exam Narrative: APPEARANCE: Well appearing, no pain, no distress, well-nourished. HEAD: normocephalic, atraumatic. EYES: PERRLA/EOMI, conjunctivae clear. NOSE: Normal no drainage EARS:TMS clear with good light reflex. THROAT: Pharynx clear, no exudate. NECK: Supple. No adenopathy, no masses. RESPIRATORY: Airway patent, respirations nonlabored. Clear to auscultation bilaterally, no rales, rhonchi, wheezing. CARDIOVASCULAR: Regular rate and rhythm without murmurs rubs or gallops. ABDOMINAL: Soft, nontender, nondistended, normal bowel sounds MUSCULOSKELETAL: Moves all extremities. Strength/ROM intact, No edema, No calf tenderness. NEURO: Alert. Cranial nerves II through XII intact. Good gait. Good coordination SKIN: Hematoma and abrasion to right forehead Course Course Emergency Course: 77-year-old female presented ED for evaluation after having a ground-level fall. Patient denies any pain or injury. Patient had negative head face and cervical spine CTs. Patient is requesting discharge back to her facility. Vital Signs Vital signs: Vital Signs Temperature 97.4 F L 03/31/23 05:21 Pulse Rate 86 03/31/23 05:21 Respiratory Rate 16 03/31/23 05:21 Blood Pressure 141/75 H 03/31/23 05:21 Pulse Oximetry 95 03/31/23 05:21 Oxygen Delivery Room Air 03/31/23 05:21 Temperature 97.4 F L 03/31/23 05:21 Pulse Rate 81 03/31/23 07:20 Respiratory Rate 24 H 03/31/23 07:20 Blood Pressure 143/70 H 03/31/23 07:20 Pulse Oximetry 100 03/31/23 07:20 Oxygen Delivery Room Air 03/31/23 05:21 MDM - Fall Differential Diagnosis Differential diagnosis: Likely other (Head contusion, scalp abrasion) Imaging Data Radiologist's impression: Impressions Head CT 03/31/23 06:25 Impression: No intracranial hemorrhage, mass, or acute infarct. Atrophy and chronic white matter changes, as above. Soft tissue swelling/hematoma at the right frontal scalp. Head/Cervical Spine/Facial Bones CT 03/31/23 06:26 Impression: No fracture is seen in the facial bones. No fracture or subluxation of the cervical spine. Mild
== END 2023-03-31 09:38 ==
PROVIDERS: Emergency Provider Emergency Medicine; PCP Family Medicine
DX: S00.83XA Contusion of other part of head, initial encounter (principal); F01.50 Vascular dementia, unspecified severity, without behavioral disturbance, psychotic disturbance, mood disturbance, and anxiety; I10 Essential (primary) hypertension; E78.5 Hyperlipidemia, unspecified; E53.8 Deficiency of other specified B group vitamins; E55.9 Vitamin D deficiency, unspecified; Z79.82 Long term (current) use of aspirin; F17.210 Nicotine dependence, cigarettes, uncomplicated; W18.30XA Fall on same level, unspecified, initial encounter
CPT/HCPCS: 70450; 70486; 72125; 99284

== ENCOUNTER 2023-11-01 08:04 | Emergency (ER) | payer MEDICARE, SELFPAY ==
--- NOTE | ~2023-11-01 | CT_ITS ---
EXAMINATION: CT cervical spine wo con DATE: 11/01/2023 08:51 INDICATION: Status post fall. Neck pain. TECHNIQUE: Computed tomography (CT) of the cervical spine was performed without intravenous contrast. The dose-length product was 110 mGy-cm. Automated exposure control and iterative reconstruction tech nique were employed. COMPARISON: CT dated 03/31/2023 FINDINGS: The craniovertebral junction is normal. There is degenerative anterolisthesis at C5-6 and C 6-7. There is advanced multilevel uncinate and facet hypertrophy. Odontoid process within normal limi ts. There is carotid atherosclerosis. No paraspinal soft tissue abnormality. Large right thyroid mass partially visualized measuring 4 cm. Follow-up thyroid ultrasound recommended. There is intracranial atherosclerosis. There is carotid atherosclerosis. There is an old spinous process fracture at C7. IMPRESSION: 1. No acute abnormality of the cervical spine. 2: Severe cervical spondylosis. Reviewed, dictated and finalized at location B.
--- NOTE | ~2023-11-01 | CT_ITS ---
EXAMINATION: CT brain wo con DATE: 11/01/2023 08:50 INDICATION: Status post fall. Head injury. TECHNIQUE: Computed tomography (CT) of the head was performed without intravenous contrast. The dose- length product was 605.33 mGy-cm. Automated exposure control and iterative reconstruction technique w ere employed. COMPARISON: CT dated 03/31/2023 FINDINGS: Generalized atrophy. There are scattered moderate periventricular and subcortical white mat ter changes, most likely related to small vessel ischemic disease (microangiopathy). No acute intracr anial hemorrhage, infarction, mass or mass effect. Basilar cisterns are patent. There is intracranial atherosclerosis. Paranasal sinuses and mastoids are pneumatized. No depressed skull fractures. IMPRESSION: 1. No acute intracranial abnormality. Reviewed, dictated and finalized at location B.
[2023-11-01 08:04] VITALS: BP 139/69; PULSE 90; RESP 20; TEMP 36.5; O2SAT 97
[2023-11-01 10:00] VITALS: BP 130/72; PULSE 80; RESP 20; O2SAT 97
--- NOTE | 2023-11-01 12:09 | ED.FALL ---
HPI - Fall General Chief Complaint: Fall Stated Complaint: fall Time Seen by Provider: 11/01/23 11:57 History of Present Illness HPI Narrative: Patient is a pleasant 77-year-old female with history of vascular dementia here after a reported fall. Patient has no idea what happened, per nursing report she was found laying in bed with a hematoma and cut on her forehead. Unsure of her last tetanus shot. Patient currently denies any pain. She does not remember falling but believes she was told that she fell. Currently has no complaints. History limited due to dementia. Related Data Home Medications Medication Instructions Recorded Confirmed aspirin 81 mg tablet,delayed 81 mg PO DAILY 11/01/21 06/28/22 release Allergies Allergy/AdvReac Type Severity Reaction Status Date / Time alendronate sodium Allergy Unknown rash Verified 12/23/21 13:45 aspirin Allergy Other Verified 03/31/23 05:32 Nmlhujp-EWJ-NqH Reductase AdvReac Unknown Nausea And Verified 02/18/23 13:25 Inhibitor Vomiting [Yvefzgo-Lye-Ata Reductase Inhibitor] Review of Systems Review of Systems: ROS unobtainable: Yes unobtainable due to medical condition (limited due to dementia, benton negative review of systems. ) PMFSH Past Medical History Medical History B12 deficiency Essential (primary) hypertension Hyperlipidemia Thrombocytosis Vascular dementia Vitamin D deficiency Surgical History Surgical History H/O cataract extraction Family History Family History Father Cancer of unknown origin Social History Social History Smoking status: Current some day smoker Tobacco type: cigarettes Second hand tobacco smoke exposure: No Alcohol intake: unknown Substance use: unknown Spiritual care concerns: No Exam Narrative: GENERAL: Well-appearing, well-nourished, and in no acute distress. HEAD: Normocephalic, 2 cm V shaped laceration to mid forehead, no active bleeding. EYES: PERRLA and EOMI. ENT: Nares clear. Mucous membranes moist. NECK: Supple. CHEST: Clear to auscultation. No respiratory distress. No chest wall tenderness. HEART: Regular rate and rhythm. Normal peripheral pulses. ABDOMEN: Soft, nontender, nondistended. EXTREMITIES: Normal range of motion. Atraumatic bilateral upper and lower extremities. No thoracic or lumbar tenderness or step-offs. Moving all 4 extremities without difficulty. SKIN: Warm, dry, no rash. NEURO: No focal deficits. Alert and oriented x2 Course Course Emergency Course: Chart review performed. Patient here after a fall, patient found in the bed with a lac and hematoma on her head this morning. Triage vitals normal. She appears to have had a similar visit on 03/31/23 after a fall. History at that time noted HTN, HLD, vascular dementia. Med list at that time included baby ASA, otherwise no blood thinner use at that time. Head CT and c-spine CTs performed today show no intracranial abnormality and no spinal fractures. Patient seen and evaluated, no toxic appearing, alert, oriented to self, pleasant. No additional injuries noted on physical exam. Will do wound cleaning and evaluate for possible need for repair. Wound cleaned, and actually appears to be more like a 1 cm linear laceration after cleaning. Skin adhesive applied to wound without difficulty. The results of pertinent diagnostic studies and exam findings were discussed. The patient?s provisional diagnosis and plan of care were discussed with the patient and present family. The patient and/or present family expressed understanding of the diagnosis and plan. The nurse was instructed to provide written instructions and appropriate follow-up information. The patient understands their need and responsibilit
[2023-11-01 13:00] VITALS: BP 127/67; PULSE 81; RESP 18; O2SAT 97
[2023-11-01] MEDS: TETANUS,DIPHTHERIA,AC PERTUSSIS ADULT (0.5 ML) BOOSTRIX IM (13:26)
--- NOTE | 2023-11-01 13:55 | PC.NURSE ---
Spoke with MADDY Garcia from facility and gave report that patient is returning to facility.
== END 2023-11-01 14:59 ==
LOC: ANHED 13:16
PROVIDERS: Emergency Provider Student in an Organized Health Care Education/Training Program; PCP Family Medicine
DX: S01.81XA Laceration without foreign body of other part of head, initial encounter (principal); W19.XXXA Unspecified fall, initial encounter; F01.50 Vascular dementia, unspecified severity, without behavioral disturbance, psychotic disturbance, mood disturbance, and anxiety; E53.8 Deficiency of other specified B group vitamins; E55.9 Vitamin D deficiency, unspecified; I10 Essential (primary) hypertension; E78.5 Hyperlipidemia, unspecified; Z23 Encounter for immunization
CPT/HCPCS: 12011; 70450; 72125; 90471; 90715; 99284

== ENCOUNTER 2024-04-13 08:15 | Emergency (ER) | payer MEDICARE, SELFPAY ==
--- NOTE | ~2024-04-13 | CT_ITS ---
EXAMINATION: CT brain wo con DATE: 04/13/2024 09:09 INDICATION: Head trauma TECHNIQUE: Computed tomography (CT) of the head was performed without intravenous contrast. Sagittal and coronal reconstructions were performed. The mA was adjusted according to patient size. Iterative reconstruction technique was employed. The dose-length product was 605.33 mGy-cm. COMPARISON: head CT dated 11/01/2023 FINDINGS: No fracture. No acute intracranial hemorrhage, acute infarction or abnormal extra axial fluid collect ion. There is mild scattered white matter hypoattenuation consistent with chronic small vessel ischem ic disease. Symmetric prominence of the sulci and ventricles consistent with moderate age-appropriate diffuse cerebral volume loss. Ventricles are normal and symmetric. No mass/mass effect. Intracranial calcified cerebral atherosclerosis is noted. The orbits, paranasal sinuses and mastoid air cells are normal. IMPRESSION: 1. No fracture or acute intracranial process. 2. Age-related changes including moderate diffuse on loss and mild scattered white matter hypoattenua tion consistent with chronic small vessel ischemic disease. Reviewed, dictated and finalized at location A. IMPRESSION: 1. No fracture or acute intracranial process. 2. Age-related changes including moderate diffuse on loss and mild scattered wh ite matter hypoattenuation consistent with chronic small vessel ischemic diseas e.
--- NOTE | ~2024-04-13 | CT_ITS ---
EXAMINATION: CT cervical spine wo con DATE: 04/13/2024 09:09 INDICATION: Neck trauma TECHNIQUE: Computed tomography (CT) of the cervical spine was performed without intravenous contrast. Automated exposure control and iterative reconstruction technique were employed. The dose-length pro duct was 176.54 mGy-cm. COMPARISON: None FINDINGS: Severe osteoarthritis at the atlantoaxial articulation. Mild cervicothoracic dextrocurvature. 1-2 mm retrolisthesis of C4. 1 mm anterolisthesis C5 on C6 and C6 on C7. Vertebral body heights are normal. No fracture. Multilevel mild disc height loss at C3-C4 through C7-T1. Small posterior disc osteophyte complexes resulting in mild central canal stenosis at C3-C4 and C4-C5. Severe uncovertebral osteoart hritis bilaterally at C4-C5. Otherwise mild to moderate uncovertebral osteoarthritis throughout the r emainder of the cervical spine. There is multilevel severe cervical facet osteoarthritis. Together th is contributes to moderate neural foraminal stenosis on the right at C4-C5 with mild neural foraminal stenosis at many of the remaining cervical neural foramina. Atherosclerotic calcifications at the bi lateral carotid bulbs. 4.8 cm right thyroid mass. Mild to moderate emphysema at the bilateral upper l ungs. IMPRESSION: 1. No acute osseous abnormality. 2. Cervical spondylosis with multilevel mild degenerative disc disease and severe bilateral facet ost eoarthritis. 3. Mild to moderate emphysema in the upper lungs. Reviewed, dictated and finalized at location A. IMPRESSION: 1. No acute osseous abnormality. 2. Cervical spondylosis with multilevel mild degenerative disc disease and pranav re bilateral facet osteoarthritis. 3. Mild to moderate emphysema in the upper lungs.
--- NOTE | ~2024-04-13 | XR_ITS ---
EXAMINATION: XR chest 1V DATE: 04/13/2024 09:15 INDICATION: Altered mental status TECHNIQUE: frontal view of the chest was obtained. COMPARISON: Chest radiograph dated 02/18/2023 FINDINGS: Persistent mild opacities at the left costophrenic angle. No other airspace opacities, pulmonary belgica a, pleural effusion or pneumothorax. The cardiomediastinal silhouette is normal. IMPRESSION: 1. Opacity left costophrenic angle most likely related to a left paracardial fat pad with differentia l including less likely lingular atelectasis or pneumonia. Reviewed, dictated and finalized at location A. IMPRESSION: 1. Opacity left costophrenic angle most likely related to a left paracardial fa t pad with differential including less likely lingular atelectasis or pneumonia .
[2024-04-13 08:18] VITALS: BP 138/76; PULSE 74; RESP 19; TEMP 36.5; O2SAT 98
[2024-04-13 08:46] LABS: Basophils Absolute Auto 0.1 K/mm3 (0.0-0.1); Basophils Percent Auto 0.9 % (0.2-1.2); Eosinophils Absolute Auto 0.1 K/mm3 (0-0.3); Eosinophils Percent Auto 0.6 % (0-4.4); Hematocrit 37.9 % (37.0-47.0); Hemoglobin 12.3 g/dL (12.0-15.0); Immature Granulocyte Absolute 0.02 K/mm3 (0.00-0.031); Immature Granulocyte Percent A 0.2 % (0-0.5); Lymphocytes Percent Auto 17.7 % (18.3-44.2); Mean Corpuscular HGB Conc 32.5 g/dl (32-36); Mean Corpuscular Hemoglobin 30.2 pg (26-34); Mean Corpuscular Volume 93.1 fl (80-100); Mean Platelet Volume 9.7 fl (7.4-10.4); Monocytes Absolute Auto 0.7 K/mm3 (0.1-0.6); Monocytes Percent Auto 8.7 % (2.6-8.5); Neutrophils Absolute Auto 6.1 K/mm3 (1.3-6.7); Neutrophils Percent Auto 71.9 % (45.5-73.1); Platelet Count Result 311 k/mm3 (150-375); Red Blood Count 4.07 M/mm3 (4.2-5.4); Red Cell Distribution Width 13.4 % (11.5-14.5); White Blood Count 8.5 K/mm3 (4.5-10.0)
[2024-04-13 08:58] LABS: Alanine Aminotransferase 20 U/L (6-35); Albumin Level 3.9 g/dL (3.5-5.1); Alkaline Phosphatase 78 U/L (38-126); Anion Gap 7 mmol/L (4-12); Aspartate Amino Transferase 35 U/L (14-36); Bilirubin,Total 0.5 mg/dL (0.2-1.3); Blood Urea Nitrogen 20 mg/dL (7-17); Calcium 8.9 mg/dL (8.4-10.2); Carbon Dioxide 28 mmol/L (22-30); Chloride 102 mmol/L (98-107); Estimated CRCL calculation 48 ml/min; Estimated Glomerular Filt Rate > 60; Glucose 95 mg/dL (65-110); Sodium 137 mmol/L (137-145)
[2024-04-13 09:06] LABS: Add Urine Microscopic? YES; Appearance Urine Cloudy (Clear); Bacteria Urine 4+ /hpf; Bilirubin Urine Negative (Negative); Blood Urine 1+ (Negative); Color Urine Yellow (Yellow); Glucose Urine UA Negative (Negative); Ketones Urine Trace mg/dL (Negative); Leukocyte Esterase Ur 2+ LEU/UL (Negative); Nitrate Urine Negative (Negative); Non Pathogenic Casts 0-2; Protein Urine Negative (Negative); Specific Grav Ur 1.013 (1.001-1.035); Squamous Epithelial Cell Urine Few /hpf (Few); WBC Urine 21-50 /hpf (0-3); pH Urine 7.5 (5.0-9.0)
[2024-04-13 09:20] LABS: Glucose Point of Care 95 mg/dl (65-105)
[2024-04-13 09:31] VITALS: BP 114/89; PULSE 80; RESP 18; O2SAT 98
--- NOTE | 2024-04-13 10:18 | ED.FALL ---
HPI - Fall General Chief Complaint: Fall Stated Complaint: glf Time Seen by Provider: 04/13/24 08:21 Source: patient and EMS Mode of arrival: EMS Limitations: no limitations History of Present Illness HPI Narrative: This is an 78-year-old female, with history of dementia (baseline orientation to self only), brought in by EMS from her [facility] after a ground level fall. EMS reports nursing staff round of the patient who appeared to be normal, when they returned, the patient had blood noted to the site of her head, though she was ambulatory. She had no other acute complaints. The patient has no acute concerns at this time. Related Data Home Medications Medication Instructions Recorded Confirmed aspirin 81 mg tablet,delayed 81 mg PO DAILY 11/01/21 06/28/22 release Allergies Allergy/AdvReac Type Severity Reaction Status Date / Time alendronate sodium Allergy Unknown rash Verified 12/23/21 13:45 aspirin Allergy Other Verified 03/31/23 05:32 Qginfdp-QJE-SoM Reductase AdvReac Unknown Nausea And Verified 02/18/23 13:25 Inhibitor Vomiting [Zintebn-Zgy-Oby Reductase Inhibitor] Review of Systems Review of Systems: All systems reviewed & are unremarkable except as noted in HPI and below PMFSH Past Medical History Medical History B12 deficiency Essential (primary) hypertension Hyperlipidemia Thrombocytosis Vascular dementia Vitamin D deficiency Surgical History Surgical History H/O cataract extraction Family History Family History Father Cancer of unknown origin Social History Social History Smoking status: Current some day smoker Tobacco type: cigarettes Second hand tobacco smoke exposure: No Alcohol intake: unknown Substance use: unknown Spiritual care concerns: No Exam Narrative: GENERAL: Well-developed, well-nourished, and in no acute distress. HEAD: Normocephalic, a 5 mm abrasion is noted to the right lateral scalp with no active bleeding. EYES: PERRLA and EOMI. ENT: Nares clear, no rhinorrhea or epistaxis. Mucous membranes moist. Oropharynx without tonsillar hypertrophy exudate or other lesions. NECK: Supple. No midline spine tenderness to palpation, no step-off or crepitus CHEST: Clear to auscultation. No respiratory distress. No wheezes rales or rhonchi HEART: Regular rate and rhythm. No murmur heard. Normal peripheral pulses. ABDOMEN: Soft, nontender, nondistended, normal active bowel sounds. BACK: No midline spine tenderness to palpation, no step-off or crepitus EXTREMITIES: Normal range of motion. No edema. SKIN: Warm, dry, no rash. NEURO: Alert and oriented x1. No focal deficit. Moving all 4 limbs spontaneously PSYCH: Normal mood and affect. Course Course Emergency Course: 10:20 - CT head not concerning for skull fracture or intracranial hemorrhage. CT cervical spine not concerning for fracture or dislocation. Chest x-ray unremarkable. CBC unremarkable. Chemistries unremarkable. Urinalysis shows changes consistent with a urinary tract infection. I discussed the patient with her nursing nurse, who is comfortable with patient returning with oral antibiotics. Will discharge. Vital Signs Vital signs: Vital Signs Temperature 97.7 F 04/13/24 08:18 Pulse Rate 74 04/13/24 08:18 Respiratory Rate 19 04/13/24 08:18 Blood Pressure 138/76 04/13/24 08:18 Pulse Oximetry 98 04/13/24 08:18 Oxygen Delivery Room Air 04/13/24 08:18 Temperature 97.7 F 04/13/24 08:18 Pulse Rate 80 04/13/24 09:31 Respiratory Rate 18 04/13/24 09:31 Blood Pressure 114/89 04/13/24 09:31 Pulse Oximetry 98 04/13/24 09:31 Oxygen Delivery Room Air 04/13/24 08:18 MDM - Fall MDM Narrative Medical decision zara
[2024-04-13] MEDS: CEPHALEXIN 500 MG CAPSULE PO (10:36)
== END 2024-04-13 10:53 | disposition home or self-care (01) ==
PROVIDERS: Emergency Provider Preventive Medicine Aerospace Medicine; PCP Family Medicine
DX: S00.01XA Abrasion of scalp, initial encounter (principal); N30.01 Acute cystitis with hematuria; W19.XXXA Unspecified fall, initial encounter; I10 Essential (primary) hypertension; E78.5 Hyperlipidemia, unspecified; E55.9 Vitamin D deficiency, unspecified; F17.210 Nicotine dependence, cigarettes, uncomplicated; Z79.82 Long term (current) use of aspirin
CPT/HCPCS: 36415; 70450; 71045; 72125; 80053; 81001; 82948; 85025; 87086; 99284; A9270

== ENCOUNTER 2024-06-23 19:49 | Emergency (ER) | payer OTHER, MEDICARE, SELFPAY ==
--- NOTE | ~2024-06-23 | CT_ITS ---
EXAMINATION: CT brain wo con DATE: 06/23/2024 20:26 INDICATION: fall . TECHNIQUE: Computed tomography (CT) of the head was performed without intravenous contrast. The mA wa s adjusted according to patient size. Iterative reconstruction technique was employed. The dose-lengt h product was 681.00 mGy-cm. COMPARISON: 04/13/2024. FINDINGS: No acute intracranial hemorrhage or extra-axial fluid collection. No hydrocephalus, mass, or herniation. No acute ischemic infarct. Unremarkable dural venous sinus attenuation. No acute osseous abnormality. The aerated spaces are clear. Moderate atrophy and chronic white matter change. Atherosclerotic intracranial calcification. Bilater al lens replacements. IMPRESSION: No acute intracranial process. Reviewed, dictated and finalized at location K. [employer]
--- NOTE | ~2024-06-23 | CT_ITS ---
EXAMINATION: CT cervical spine wo con DATE: 06/23/2024 20:26 INDICATION: fall TECHNIQUE: Computed tomography (CT) of the cervical spine was performed without intravenous contrast. Automated exposure control and iterative reconstruction technique were employed. The dose-length pro duct was 85.93 mGy-cm. COMPARISON: 04/13/2024. FINDINGS: Vertebral Body Alignment: Stable minimal multilevel listheses, likely secondary to degenerative ruvalcaba es. Craniocervical and atlantoaxial alignment: Moderate degenerative change. Alignment intact. Osseous structures/fracture: No evidence of a lytic or blastic process in the visualized spine. No e vidence of acute fracture. Cervical soft tissues: The paraspinal soft tissues planes are maintained. Degenerative changes: Multilevel mild degenerative disc disease and moderate facet arthropathy. No se ellie central canal or neural foraminal narrowing.. IMPRESSION: No acute fracture or traumatic malalignment in the cervical spine. 4.2 cm right thyroid mass, prior recommend for thyroid ultrasound is unchanged. Reviewed, dictated and finalized at location K. [facility]
[2024-06-23 19:49] VITALS: BP 110/70; PULSE 85; RESP 21; TEMP 36.6; O2SAT 95
--- NOTE | 2024-06-23 20:18 | ED.FALL ---
HPI - Fall General Chief Complaint: Fall Stated Complaint: UNWITNESSED FALL, LAC TO HEAD Time Seen by Provider: 06/23/24 19:51 History of Present Illness HPI Narrative: 78-year-old female with a past medical history of advanced dementia currently only alert oriented to herself which is at baseline. She presents to the emergency department via EMS for concerns of an unwitnessed fall with head trauma at her nursing facility. Patient is pleasant awake alert answering all questions but is only alert to herself. No changes in baseline mentation, no loss of consciousness according to the patient but she also does not remember falling. She has a small laceration at the proximal 0.5 cm in the posterior left side of her scalp. Bleeding control without any direct pressure. Takes aspirin per her med list but no reported blood thinners. Patient is able to move all extremities, does not remember the fall. Related Data Home Medications ?Medication ?Instructions ?Recorded ?Confirmed ?Last Taken ?Type aspirin 81 mg tablet,delayed 81 mg PO DAILY 11/01/21 06/28/22 Unknown History release Allergies Allergy/AdvReac Type Severity Reaction Status Date / Time alendronate sodium Allergy Unknown rash Verified 12/23/21 13:45 aspirin Allergy Other Verified 03/31/23 05:32 [id number] Reductase AdvReac Unknown Nausea And Verified 02/18/23 13:25 Inhibitor (Depuefm-Wre-Frs Vomiting Reductase Inhibitor) Review of Systems Review of Systems: As [facility] Past Medical History Medical History Thrombocytosis Hyperlipidemia Vitamin D deficiency Vascular dementia B12 deficiency Essential (primary) hypertension Surgical History Surgical History H/O cataract extraction Family History Family History Father Cancer of unknown origin Social History Social History Smoking status: Current some day smoker Tobacco type: cigarettes Second hand tobacco smoke exposure: No Alcohol intake: unknown Substance use: unknown Spiritual care concerns: No Exam Narrative: GENERAL: [Well-appearing, well-nourished, and in no acute distress.] HEAD: Normocephalic, small 0.5 cm laceration to the posterior left side of her scalp. No active bleeding. No crepitus or step-offs, deformities. EYES: [PERRLA and EOMI.] ENT: Nares clear, no rhinorrhea or epistaxis. Mucous membranes moist. NECK: Supple. CHEST: [Clear to auscultation. No respiratory distress.] HEART: [Regular rate and rhythm]. No murmur heard. [Normal peripheral pulses.] ABDOMEN: [Soft, nondistended], [nontender], [No rigidity or guarding] EXTREMITIES: Normal range of motion. [No edema.] SKIN: Warm, dry, no rash. NEURO: [No focal deficits]. Alert and oriented x1 to herself which is her baseline. Able to move all extremities with no appreciable weakness or deficits. PSYCH: [Normal mood and affect.] Course Vital Signs Vital signs: Vital Signs Temperature 36.6 C 06/23/24 19:49 Pulse Rate 85 06/23/24 19:49 Respiratory Rate 21 H 06/23/24 19:49 Blood Pressure 110/70 06/23/24 19:49 Pulse Oximetry 95 06/23/24 19:49 Oxygen Delivery Room Air 06/23/24 19:49 Temperature 36.6 C 06/23/24 19:49 Pulse Rate 85 06/23/24 19:49 Respiratory Rate 21 H 06/23/24 19:49 Blood Pressure 110/70 06/23/24 19:49 Pulse Oximetry 95 06/23/24 19:49 Oxygen Delivery Room Air 06/23/24 19:49 Procedures Laceration Laceration 1: Date: 06/23/24 Time: 20:53 Site: scalp Side (If applicable): left Size (cm): 0.5 Description: linear Depth: simple, single layer Local Anesthetic: none Pre-repair: wound explored and irrigated ====== Skin Level ====== Skin layer closed with: dermabond ====== Subcutaneous Layer ====== ====== Muscle Layer ====== ====== Tendon Layer ====== Dressing: gauze and pressure dressing MDM - Fall MDM Narrative Medical decision making narrative: 78-year-old female presenting via EMS for concerns of a unwitnessed fall with head trauma. She has a 0.5 cm laceration to the back for left scalp which was repaired primarily with Dermabond and direct pressure. She is not any blood thinners aside from aspirin however given her age and risk factors a CT head was ordered to assess for any kind intracranial pathology. Very low suspicion for intracranial bleed but she is high risk based on age. She has a history of advanced dementia and at her baseline mentation which is x1 to herself only. If her imaging studies are negative she can be safely discharged back to her facility at that time. Patient's imaging studies showed no acute osseous process or intracranial bleed or hemorrhage. She was otherwise stable and at baseline mentation. Wound repaired her wound with Dermabond and she is stay for discharge back at this time with ambulance. Medical Records Attestation: I reviewed the patient's medical records. Imaging Data Attestation: I personally reviewed and interpreted this imaging study as follows: My impression: Impressions Head CT 06/23/24 20:29 IMPRESSION: No acute intracranial process. Cervical Spine CT 06/23/24 20:33 IMPRESSION: No acute fracture or traumatic malalignment in the cervical spine. 4.2 cm right thyroid mass, prior recommend for thyroid ultrasound is unchanged. Discharge Plan Discharge Clinical Impression: CHI (closed head injury), Scalp laceration Patient Disposition: Home, Self-Care Condition: Stable Instructions: Antibiotic Form, Laceration (ED), Head Injury (ED) Additional Instructions: Return with any new or worsening concerns at any time. Wound care instructions provided. Patient Language: [place]an Prescriptions: No Action aspirin 81 mg tablet,delayed release (DR/EC) 81 mg PO DAILY cephalexin 500 mg capsule 500 mg PO Q12H Qty: 14 0RF fluoxetine 20 mg capsule 20 mg PO DAILY Qty: 90 1RF hydrochlorothiazide 25 mg tablet 25 mg PO DAILY Qty: 90 1RF metoprolol succinate 50 mg tablet extended release 24 hr 50 mg PO DAILY Qty: 90 1RF memantine 5 mg tablet 5 mg PO QAM Qty: 90 1RF lorazepam 0.5 mg tablet 0.5 mg PO .QHS PRN (Reason: sleep) Qty: 30 0RF lisinopril 10 mg tablet 10 mg PO DAILY Qty: 30 0RF Rx Instructions: LAST REFILL UNTIL SEEN Follow-up/Referrals: Keshia Garcia MD [Primary Care Provider] - Time of Disposition: 20:55
[2024-06-23 21:12] VITALS: BP 113/79; PULSE 85; RESP 18; O2SAT 97
== END 2024-06-23 21:56 ==
PROVIDERS: Emergency Provider Student in an Organized Health Care Education/Training Program; PCP Family Medicine
DX: S01.01XA Laceration without foreign body of scalp, initial encounter (principal); F01.50 Vascular dementia, unspecified severity, without behavioral disturbance, psychotic disturbance, mood disturbance, and anxiety; I10 Essential (primary) hypertension; E78.5 Hyperlipidemia, unspecified; E55.9 Vitamin D deficiency, unspecified; E53.8 Deficiency of other specified B group vitamins; F17.210 Nicotine dependence, cigarettes, uncomplicated; Z79.82 Long term (current) use of aspirin; Z79.899 Other long term (current) drug therapy; E07.9 Disorder of thyroid, unspecified; W19.XXXA Unspecified fall, initial encounter
CPT/HCPCS: 12001; 70450; 72125; 99284

== ENCOUNTER 2024-07-01 18:49 | Emergency (ER) | payer MEDICARE, SELFPAY ==
--- NOTE | ~2024-07-01 | CT_ITS ---
CORRECTED REPORT [place] images [id number] [facility] [place] This report was recreated on 07/12/24. Original report was CEMENTER ADDENDUM For further clarification, infected bile and/or hemorrhage may be present in the subcapsular and pelvic fluid collections. Results reported telephonically to Dr. Velasquez by Dr. Gill at 11:20 PM on 07/01/2024. CEMENTER EXAMINATION: CTA chest PE abdomen pel DATE: 07/01/2024 21:02 INDICATION: sepsis, abdominal pain, hypoxia TECHNIQUE: Computed tomography angiography (CTA) of the chest was performed with 100 mL Omnipaque-350 intravenous contrast timed to evaluate the pulmonary arteries, followed by portal venous phase imaging of the abdomen and pelvis. Coronal maximum intensity projection 3D-reconstructions were created by the technologist. The dose-length product (DLP) was 781.77 mGy-cm. Automated exposure control and iterative reconstruction technique were employed. COMPARISON: None. FINDINGS: CHEST: Lung parenchyma and airways: Motion artifact in the lower lungs. Patent airways. Emphysematous changes. Pleura: Unremarkable. Thoracic inlet, axillae and chest wall: Partially calcified 4.1 cm right thyroid mass. Thoracic aorta: Mild atherosclerotic plaque. No significant ectasia or dissection. Mediastinum: Patulous, fluid-filled esophagus. Heart and pericardium: Normal. Coronary artery calcifications: Mild. Thoracic bones: No acute osseous finding. Pulmonary arteries: Study quality: Adequate. No pulmonary emboli detected. ABDOMEN/PELVIS: Liver: Multiple simple hepatic cysts, measuring up to 5.0 cm in the right liver lobe. Biliary/Gallbladder: Gallbladder is normal. 3.6 x 4.7 cm enhancing probably intraductal mass at the torres hepatis, with marked upstream biliary duct dilation. Markedly dilated ducts in the right lobe extending through the hepatic parenchyma and are apparently communication with a large subcapsular collection. Pancreas: No mass or duct dilation. Spleen: Normal. Adrenals:Indeterminate density 1.6 cm left adrenal nodule Kidneys: 1.6 cm indeterminate density right midpole lesion. Multiple simple bilateral renal cysts. Multiple subcentimeter hypodensities that are too small to characterize. GI tract: No small or large bowel dilation. Normal appendix. Diverticulosis without diverticulitis. Moderate length segment of marked diverticulosis (including a large stool-filled diverticulum), with apparent luminal narrowing, and possible proximal shouldering in the mid sigmoid. Mesentery/Peritoneum: No ascites, mass, or free air. Retroperitoneum: No mass. Pelvis: Moderate free pelvic fluid, similar density to the subhepatic collection. Small atrophic uterus. 2.7 cm fibroid. Soft Tissues: Small fat-containing left inguinal hernia. Abdominopelvic bones: No acute osseous finding. IMPRESSION: No acute pulmonary embolus. No acute intrathoracic process detected. 4.1 cm right thyroid mass. Consider nonemergent, outpatient thyroid ultrasound for further characterization, if/when clinically appropriate. 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 Moderate volume free pelvic fluid is of a similar density and may also represent bile. Recommend MR MRCP without and with contrast for further evaluation. Indeterminate 1.6 cm left adrenal nodule. Indeterminate 1.6 cm right midpole renal lesion. Long segment sigmoid wall thickening in an area of pronounced diverticulosis. Early diverticulitis or colitis could have this appearance. A colonic mass is not excluded, consider endoscopy referral if/when clinically appropriate. Bladder wall edema, as can be seen with cystitis. CEMENTER TAMAR
--- NOTE | ~2024-07-01 | XR_ITS ---
CORRECTED REPORT moved report and image to [id number] [facility] [place] 07/12/24 This report was recreated on 07/12/24. Original report was C COMPOSER EXAMINATION: XR abdomen gastric tube insert DATE: 07/02/2024 05:08 INDICATION: Nasogastric tube placement. TECHNIQUE: A supine view of the abdomen was obtained. COMPARISON: CT abdomen and pelvis 07/01/2024 FINDINGS: The lower abdomen is excluded. There are no dilated loops of bowel. The nasogastric tube tip is in the distal stomach. IMPRESSION: 1. Nasogastric tube tip in the distal stomach. Reviewed, dictated and finalized at location A. C COMPOSER MTDD
--- NOTE | 2024-07-01 19:56 | ER_ITS ---
This report was moved to the correct visit on 07/05/2024.? The original report was signed by Hiwot Duque MD on 07/01/242035 and co-signed by Flora Velasquez MD on 07/02/24 0644. HPI - Abdominal Pain General Chief Complaint: Abdominal Pain <Hiwot Duque MD - Last Filed: 07/02/24 20:36> Stated Complaint: abd pain <Hiwot Duque MD - Last Filed: 07/02/24 20:36> Time Seen by Provider: 07/01/24 19:43 <Hiwot Duque MD - Last Filed: 07/02/24 20:36> History of Present Illness HPI narrative: 78-year-old female presenting with abdominal pain. Patient has dementia and resides at a nursing facility. She apparently started complaining about abdominal pain earlier today. On my evaluation, she denies complaints. She is A&O x1 which is her baseline. <Hiwot Duque MD - Last Filed: 07/02/24 20:36> Related Data Home Medications: Home Medications ?Medication ?Instructions ?Recorded ?Confirmed ?Last Taken ?Type aspirin 81 mg tablet,delayed 81 mg PO DAILY 11/01/21 06/28/22 Unknown History release <Hiwot Duque MD - Last Filed: 07/02/24 20:36> Allergies/Adverse Reactions: Allergies Allergy/AdvReac Type Severity Reaction Status Date / Time alendronate sodium Allergy Unknown rash Verified 12/23/21 13:45 aspirin Allergy Other Verified 03/31/23 05:32 Hvjycym-RMC-VwM Reductase AdvReac Unknown Nausea And Verified 02/18/23 13:25 Inhibitor (Mevjwav-Jdf-Sfa Vomiting Reductase Inhibitor) <Hiwot Duque MD - Last Filed: 07/02/24 20:36> Review of Systems Review of Systems: ROS unobtainable: Yes unobtainable due to medical condition and other ( Underlying dementia) <Hiwot Duque MD - Last Filed: 07/02/24 20:36> PMFSH Past Medical History Medical History: Medical History Thrombocytosis Hyperlipidemia Vitamin D deficiency Vascular dementia B12 deficiency Essential (primary) hypertension <Hiwot Duque MD - Last Filed: 07/02/24 20:36> Surgical History Surgical History: Surgical History H/O cataract extraction <Hiwot Duque MD - Last Filed: 07/02/24 20:36> Family History Family History: Family History Father Cancer of unknown origin <Hiwot Duque MD - Last Filed: 07/02/24 20:36> Social History Social History: Social History Smoking status: Current some day smoker Tobacco type: cigarettes Second hand tobacco smoke exposure: No Alcohol intake: unknown Substance use: unknown Spiritual care concerns: No <Hiwot Duque MD - Last Filed: 07/02/24 20:36> Exam Narrative: GENERAL: chronically ill-appearing, no acute distress HEAD: Normocephalic, atraumatic. EYES: PERRLA and EOMI. ENT: Mucous membranes dry. NECK: Supple. CHEST: coarse breath sounds bilaterally, no respiratory distress HEART: tachycardic, regular rhythm ABDOMEN: Soft, diffuse abdominal tenderness without guarding or rebound EXTREMITIES: Normal range of motion SKIN: Warm, dry, no rash. NEURO: Alert and oriented x1. PSYCH: Normal mood and affect. <Hiwot Duque MD - Last Filed: 07/02/24 20:36> Course Course Emergency Course: Resumed care of this patient pending transfer to [facility] for higher level of care. I spoke with the patient's sister who is her POA. We discussed the terminal nature of her diagnosis and her poor quality of life at this point. The patient's sister would like to transition the patient to comfort measures and start her with a hospice program to focus on making her comfortable to let her pass peacefully. Transfer to [facility] will be canceled and care coordination has been consulted to arrange for hospice management. <Hiwot Duque MD - Last Filed: 07/02/24 20:36> Vital Signs Vital signs: Vital Signs Temperature 97.6 F 07/01/24 19:42 Pulse Rate 140 H 07/01/24 19:42 Respiratory Rate 14 07/01/24 19:42 Blood Pressure 90/60 L 07/01/24 19:42 Pulse Oximetry 89 L 07/01/24 19:42 Temperature 98 F 07/01/24 19:57 Pulse Rate 121 H 07/02/24 18:32 Respiratory Rate 29 H 07/02/24 18:32 Blood Pressure 102/68 07/02/24 18:32 Pulse Oximetry 97 07/02/24 18:32 Oxygen Delivery Non-Rebreather Mask 07/02/24 05:25 Oxygen Flow Rate 15 07/02/24 05:25 <Hiwot Duque MD - Last Filed: 07/02/24 20:36> Vital Signs Temperature 97.6 F 07/01/24 19:42 Pulse Rate 140 H 07/01/24 19:42 Respiratory Rate 14 07/01/24 19:42 Blood Pressure 90/60 L 07/01/24 19:42 Pulse Oximetry 89 L 07/01/24 19:42 Temperature 98 F 07/01/24 19:57 Pulse Rate 121 H 07/02/24 18:32 Respiratory Rate 29 H 07/02/24 18:32 Blood Pressure 102/68 07/02/24 18:32 Pulse Oximetry 97 07/02/24 18:32 Oxygen Delivery Non-Rebreather Mask 07/02/24 05:25 Oxygen Flow Rate 15 07/02/24 05:25 <Flora Velasquez MD - Last Filed: 07/02/24 06:44> MDM - Abdominal Pain MDM Narrative Medical decision making narrative: 6-year-old female presenting with abdominal pain. On arrival, patient is tachycardic with some soft pressures. Hypoxic on room air. Fluids started, placed on nasal cannula with improvement in her saturations. Blood work is concerning for a white count of 29. Sodium 156, creatinine 1.8, BUN 46. 3 L of fluids have been ordered. <Hiwot Duque MD - Last Filed: 07/02/24 20:36> 78-year-old female presenting with abdominal pain. On arrival, patient is tachycardic with some soft pressures. Hypoxic on room air. Fluids started, placed on nasal cannula with improvement in her saturations. Blood work is concerning for a white count of 29. Sodium 156, creatinine 1.8, BUN 46. 3 L of fluids have been ordered. [place]: Patient was signed out to me by Dr. Duque pending remainder of the workup including a CT angio chest/abdomen/pelvis. The patient was evaluated by myself in the emergency department. History is obtained from EMS report and physical exam was performed. External medical records were reviewed at this time. IV was established and pertinent tests were ordered. Patient was administered a total of a 3 L IV fluid bolus which is her full sepsis bolus and started immediately on broad-spectrum antibiotic with vancomycin and cefepime due to concern for sepsis, pending source identification. Laboratory results obtained revealing a repeat lactic acid of 1.8 which improved from initial lactic acid of 4.3. Patient's initial troponin was elevated at 0.078 with repeat 3 hour troponin of 0.118. At this time patient was continued on maintenance fluids with LR at a rate of 100 cc/hour. Imaging studies obtained included CT angio chest/abdomen/pelvis with IV contrast which was independently interpreted by me revealing: No acute pulmonary embolus. No acute intrathoracic process detected. 4.1 cm right thyroid mass. Consider nonemergent, outpatient thyroid ultrasound for further characterization, if/when clinically appropriate. 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 Moderate volume free pelvic fluid is of a similar density and may also represent bile. Recommend MR MRCP without and with contrast for further evaluation. Indeterminate 1.6 cm left adrenal nodule. Indeterminate 1.6 cm right midpole renal lesion. Long segment sigmoid wall thickening in an area of pronounced diverticulosis. Early diverticulitis or colitis could have this appearance. A colonic mass is not excluded, consider endoscopy referral if/when clinically appropriate. Bladder wall edema, as can be seen with cystitis. IV Flagyl 500 mg Q 8 hours was added to patient's antibiotic regimen. At this time, case was discussed with the on-call telescope maintenance Dr. Esqueda at [phone] who recommended transferring the patient to a higher level of care for hepatobiliary services. The [facility] transfer line was contacted at 0030 and transfer was initiated. I did receive a call back from them at 0200 informing me that after discussing the case with hepatobiliary who reviewed the patient's CT images they concluded that the patient's condition is to advance an as of right now she is not a surgical candidate, they recommend medical admission for decompression, IR/GI evaluation while patient is continued on IV antibiotics. They can be consulted on the patient and will follow her progress and reassess her at a later time to see if she may be a surgical candidate at this time. Case was discussed with the on-call hospitalist Dr. Padilla at [facility] who accepted the transfer as a medical transfer. Patient is now pending a bed at [facility] with an estimated weight time of 11 days. Patient's sister is her power of traffic law attorney and she will be contacted at this time to obtain consent for patient transport. [facility] did call back and request that an NG tube be placed. Differential diagnosis considerations include sepsis secondary to infectious process such as pneumonia, UTI, GI process, dehydration, electrolyte derangements, bowel obstruction, acute viral syndrome. Comorbidities impacting this visit include history of vascular dementia. I have evaluated and discussed social determinants of health with the patient that could potentially impact subsequent diagnosis and treatment plans. Critical care time of 67 minutes, exclusive of separately performed procedures, necessary for treating or preventing eminent or life-threatening deterioration of patient's condition of septic shock, focused on patient care provided personally by me and time spent during physical examination, ordering and performing treatments and interventions, reviewing laboratory and radiographic studies, re-evaluation of the patient's condition and patient's response to treatment, and discussion of patient case with multiple consultants. <Flora Velasquez MD - Last Filed: 07/02/24 06:44> Differential Diagnosis Differential diagnosis: Likely abdominal pain, constipation, diverticulitis, gastroenteritis, pancreatitis and small bowel obstruction <Hiwot Duque MD - Last Filed: 07/02/24 20:36> Medical Records Attestation: I reviewed the patient's medical records. <Hiwot Duque MD - Last Filed: 07/02/24 20:36> Lab Data Attestation: I reviewed the patient's lab results. <Hiwot Duque MD - Last Filed: 07/02/24 20:36> Result diagrams: 07/02/24 04:14 07/02/24 05:11 <Hiwot Duque MD - Last Filed: 07/02/24 20:36> Labs: Lab Results 07/01/24 07/01/24 07/01/24 Range/Units 19:56 20:44 22:54 WBC 29.0 H (4.5-10.0) K/mm3 RBC 4.18 L (4.2-5.4) M/mm3 Hgb 12.3 (12.0-15.0) g/dL Hct 39.5 (37.0-47.0) % MCV 94.5 (80-100) fl MCH 29.4 (26-34) pg MCHC 31.1 L (32-36) g/dl RDW 14.6 H (11.5-14.5) % Plt Count 458 H (150-375) k/mm3 MPV 10.7 H (7.4-10.4) fl Immature Gran % (Auto) Not Reportable Neut % (Auto) Not Reportable Lymph % (Auto) Not Reportable [place] % (Auto) Not Reportable Eos % (Auto) Not Reportable Baso % (Auto) Not Reportable Lymph # (Auto) Not Reportable [place] # (Auto) Not Reportable Eos # (Auto) Not Reportable Baso # (Auto) Not Reportable Abs Immat Gran (auto) Not Reportable Absolute Neuts (auto) Not Reportable Absolute Nucleated RBC Not Reportable Total Counted 100 Neutrophils % (Manual) 87 H (46-73) % Band Neutrophils % 1 (0-6) % Lymphocytes % (Manual) 6 L (18-44) % Monocytes % (Manual) 6 (3-9) % Eosinophils % (Manual) 0 (0-4) % Basophils % (Manual) 0 (0-1) % Nucleated RBC % Not Reportable Abs Neuts (Manual) 25.52 H (1.7-7.2) K/mm3 Abs Lymphs (Manual) 1.74 (1.1-4.5) K/mm3 Abs Monocytes (Manual) 1.74 H (0.1-0.90) K/mm3 Absolute Eos (Manual) 0.00 L (0.02-0.50) K/mm3 Abs Basophils (Manual) 0.00 (0.0-0.1) K/mm3 Nucleated RBCs % Platelet Estimate Increased (Adequate) Large Platelets Present Giant Platelets Present Hypochromasia 1+ Anisocytosis 1+ Tear Drop Cells [place] Cells Schistocytes None seen PT 15.9 H (11.1-14.7) Seconds INR 1.2 APTT 22.6 (22.3-36.8) Seconds Sodium 156 H (137-145) mmol/L Potassium 3.4 (3.4-5.0) mmol/L Chloride 118 H (98-107) mmol/L Carbon Dioxide 23 (22-30) mmol/L Anion Gap 15 H (4-12) mmol/L BUN 46 H D (7-17) mg/dL Creatinine 1.80 H (0.7-1.0) mg/dL Estim Creat Clear Calc Not Reportable Estimated GFR 27 L (59 - ) Glucose 183 H (65-110) mg/dL Lactic Acid 4.3 H* (0.7-2.0) mmol/L Calcium 9.6 (8.4-10.2) mg/dL Total Bilirubin 1.2 (0.2-1.3) mg/dL AST 149 H (14-36) U/L ALT 132 H (6-35) U/L Alkaline Phosphatase 114 (38-126) U/L Troponin I 0.078 H* (0.000-0.034) ng/mL NT-Pro-B Natriuret Pep 1760 H (19.9-100) pg/mL Total Protein 8.0 (6.3-8.2) g/dL Albumin 4.4 (3.5-5.1) g/dL Lipase 295 (23-300) U/L Urine Color (Yellow) Urine Appearance (Clear) Urine pH (5.0-9.0) Ur Specific [place] (1.001-1.035) Urine Protein (Negative) mg/dL Urine Glucose (UA) (Negative) mg/dL Urine Ketones (Negative) mg/dL Ur Blood (Man) (Negative) Urine Nitrate (Negative) Urine Bilirubin (Negative) Urine Urobilinogen (<2.0) mg/dL Leukocyte Esterase Rfl (Negative) GLEN/UL Urine RBC (0-2) /hpf Urine WBC (0-3) /hpf Ur Transition Epith Cell (None Seen) /hpf Urine Bacteria /hpf Nasal MRSA (PCR) Not detected (NOT DETECTE) Influenza A (RT-PCR) Negative (Negative) Influenza B (RT-PCR) Negative (Negative) RSV (RT-PCR) Negative (Negative) SARS-CoV-2 RNA (RT-PCR) Negative (Negative) 07/02/24 07/02/24 07/02/24 Range/Units 00:07 04:14 05:11 WBC 22.7 H (4.5-10.0) K/mm3 RBC 4.29 (4.2-5.4) M/mm3 Hgb 12.6 (12.0-15.0) g/dL Hct 40.6 (37.0-47.0) % MCV 94.6 (80-100) fl MCH 29.4 (26-34) pg MCHC 31.0 L (32-36) g/dl RDW 14.6 H (11.5-14.5) % Plt Count 422 H (150-375) k/mm3 MPV 10.2 (7.4-10.4) fl Immature Gran % (Auto) Not Reportable Neut % (Auto) Not Reportable Lymph % (Auto) Not Reportable [place] % (Auto) Not Reportable Eos % (Auto) Not Reportable Baso % (Auto) Not Reportable Lymph # (Auto) Not Reportable [place] # (Auto) Not Reportable Eos # (Auto) Not Reportable Baso # (Auto) Not Reportable Abs Immat Gran (auto) Not Reportable Absolute Neuts (auto) Not Reportable Absolute Nucleated RBC Not Reportable Total Counted 100 Neutrophils % (Manual) 68 (46-73) % Band Neutrophils % 10 H (0-6) % Lymphocytes % (Manual) 20.0 (18-44) % Monocytes % (Manual) 2 L (3-9) % Eosinophils % (Manual) (0-4) % Basophils % (Manual) (0-1) % Nucleated RBC % Not Reportable Abs Neuts (Manual) 17.70 H (1.7-7.2) K/mm3 Abs Lymphs (Manual) 4.54 H (1.1-4.5) K/mm3 Abs Monocytes (Manual) 0.45 (0.1-0.90) K/mm3 Absolute Eos (Manual) (0.02-0.50) K/mm3 Abs Basophils (Manual) (0.0-0.1) K/mm3 Nucleated RBCs 1 % Platelet Estimate Increased (Adequate) Large Platelets Present Giant Platelets Hypochromasia Anisocytosis 1+ Tear Drop Cells 1+ [place] Cells 1+ Schistocytes None seen PT (11.1-14.7) Seconds INR APTT (22.3-36.8) Seconds Sodium 154 H (137-145) mmol/L Potassium 3.4 (3.4-5.0) mmol/L Chloride 126 H (98-107) mmol/L Carbon Dioxide 22 (22-30) mmol/L Anion Gap 6 (4-12) mmol/L BUN 50 H (7-17) mg/dL Creatinine 1.80 H 1.70 H (0.7-1.0) mg/dL Estim Creat Clear Calc Not Reportable Not Reportable Estimated GFR 27 L 29 L (59 - ) Glucose 145 H (65-110) mg/dL Lactic Acid 1.8 (0.7-2.0) mmol/L Calcium 7.9 L (8.4-10.2) mg/dL Total Bilirubin 0.8 (0.2-1.3) mg/dL AST 94 H (14-36) U/L ALT 89 H (6-35) U/L Alkaline Phosphatase 91 (38-126) U/L Troponin I 0.118 H* D 0.112 H* (0.000-0.034) ng/mL NT-Pro-B Natriuret Pep (19.9-100) pg/mL Total Protein 6.0 L (6.3-8.2) g/dL Albumin 3.1 L (3.5-5.1) g/dL Lipase (23-300) U/L Urine Color (Yellow) Urine Appearance (Clear) Urine pH (5.0-9.0) Ur Specific [place] (1.001-1.035) Urine Protein (Negative) mg/dL Urine Glucose (UA) (Negative) mg/dL Urine Ketones (Negative) mg/dL Ur Blood (Man) (Negative) Urine Nitrate (Negative) Urine Bilirubin (Negative) Urine Urobilinogen (<2.0) mg/dL Leukocyte Esterase Rfl (Negative) GLEN/UL Urine RBC (0-2) /hpf Urine WBC (0-3) /hpf Ur Transition Epith Cell (None Seen) /hpf Urine Bacteria /hpf Nasal MRSA (PCR) (NOT DETECTE) Influenza A (RT-PCR) (Negative) Influenza B (RT-PCR) (Negative) RSV (RT-PCR) (Negative) SARS-CoV-2 RNA (RT-PCR) (Negative) 07/02/24 Range/Units 11:35 WBC (4.5-10.0) K/mm3 RBC (4.2-5.4) M/mm3 Hgb (12.0-15.0) g/dL Hct (37.0-47.0) % MCV (80-100) fl MCH (26-34) pg MCHC (32-36) g/dl RDW (11.5-14.5) % Plt Count (150-375) k/mm3 MPV (7.4-10.4) fl Immature Gran % (Auto) Neut % (Auto) Lymph % (Auto) [place] % (Auto) Eos % (Auto) Baso % (Auto) Lymph # (Auto) [place] # (Auto) Eos # (Auto) Baso # (Auto) Abs Immat Gran (auto) Absolute Neuts (auto) Absolute Nucleated RBC Total Counted Neutrophils % (Manual) (46-73) % Band Neutrophils % (0-6) % Lymphocytes % (Manual) (18-44) % Monocytes % (Manual) (3-9) % Eosinophils % (Manual) (0-4) % Basophils % (Manual) (0-1) % Nucleated RBC % Abs Neuts (Manual) (1.7-7.2) K/mm3 Abs Lymphs (Manual) (1.1-4.5) K/mm3 Abs Monocytes (Manual) (0.1-0.90) K/mm3 Absolute Eos (Manual) (0.02-0.50) K/mm3 Abs Basophils (Manual) (0.0-0.1) K/mm3 Nucleated RBCs % Platelet Estimate (Adequate) Large Platelets Giant Platelets Hypochromasia Anisocytosis Tear Drop Cells [place] Cells Schistocytes PT (11.1-14.7) Seconds INR APTT (22.3-36.8) Seconds Sodium (137-145) mmol/L Potassium (3.4-5.0) mmol/L Chloride (98-107) mmol/L Carbon Dioxide (22-30) mmol/L Anion Gap (4-12) mmol/L BUN (7-17) mg/dL Creatinine (0.7-1.0) mg/dL Estim Creat Clear Calc Estimated GFR (59 - ) Glucose (65-110) mg/dL Lactic Acid (0.7-2.0) mmol/L Calcium (8.4-10.2) mg/dL Total Bilirubin (0.2-1.3) mg/dL AST (14-36) U/L ALT (6-35) U/L Alkaline Phosphatase (38-126) U/L Troponin I (0.000-0.034) ng/mL NT-Pro-B Natriuret Pep (19.9-100) pg/mL Total Protein (6.3-8.2) g/dL Albumin (3.5-5.1) g/dL Lipase (23-300) U/L Urine Color Yellow (Yellow) Urine Appearance Sl cloudy (Clear) Urine pH 5.5 (5.0-9.0) Ur Specific [place] 1.020 (1.001-1.035) Urine Protein 2+ H (Negative) mg/dL Urine Glucose (UA) Negative (Negative) mg/dL Urine Ketones Negative (Negative) mg/dL Ur Blood (Man) 3+ H (Negative) Urine Nitrate Negative (Negative) Urine Bilirubin 1+ H (Negative) Urine Urobilinogen 0.2 (<2.0) mg/dL Leukocyte Esterase Rfl Trace H (Negative) GLEN/UL Urine RBC 6-10 H (0-2) /hpf Urine WBC 0-5 (0-3) /hpf Ur Transition Epith Cell Few H (None Seen) /hpf Urine Bacteria 1+ /hpf Nasal MRSA (PCR) (NOT DETECTE) Influenza A (RT-PCR) (Negative) Influenza B (RT-PCR) (Negative) RSV (RT-PCR) (Negative) SARS-CoV-2 RNA (RT-PCR) (Negative) <Hiwot Duque MD - Last Filed: 07/02/24 20:36> Lab Results 07/01/24 07/01/24 07/01/24 Range/Units 19:56 20:44 22:54 WBC 29.0 H (4.5-10.0) K/mm3 RBC 4.18 L (4.2-5.4) M/mm3 Hgb 12.3 (12.0-15.0) g/dL Hct 39.5 (37.0-47.0) % MCV 94.5 (80-100) fl MCH 29.4 (26-34) pg MCHC 31.1 L (32-36) g/dl RDW 14.6 H (11.5-14.5) % Plt Count 458 H (150-375) k/mm3 MPV 10.7 H (7.4-10.4) fl Immature Gran % (Auto) Not Reportable Neut % (Auto) Not Reportable Lymph % (Auto) Not Reportable [place] % (Auto) Not Reportable Eos % (Auto) Not Reportable Baso % (Auto) Not Reportable Lymph # (Auto) Not Reportable [place] # (Auto) Not Reportable Eos # (Auto) Not Reportable Baso # (Auto) Not Reportable Abs Immat Gran (auto) Not Reportable Absolute Neuts (auto) Not Reportable Absolute Nucleated RBC Not Reportable Total Counted 100 Neutrophils % (Manual) 87 H (46-73) % Band Neutrophils % 1 (0-6) % Lymphocytes % (Manual) 6 L (18-44) % Monocytes % (Manual) 6 (3-9) % Eosinophils % (Manual) 0 (0-4) % Basophils % (Manual) 0 (0-1) % Nucleated RBC % Not Reportable Abs Neuts (Manual) 25.52 H (1.7-7.2) K/mm3 Abs Lymphs (Manual) 1.74 (1.1-4.5) K/mm3 Abs Monocytes (Manual) 1.74 H (0.1-0.90) K/mm3 Absolute Eos (Manual) 0.00 L (0.02-0.50) K/mm3 Abs Basophils (Manual) 0.00 (0.0-0.1) K/mm3 Nucleated RBCs % Platelet Estimate Increased (Adequate) Large Platelets Present Giant Platelets Present Hypochromasia 1+ Anisocytosis 1+ Tear Drop Cells [place] Cells Schistocytes None seen PT 15.9 H (11.1-14.7) Seconds INR 1.2 APTT 22.6 (22.3-36.8) Seconds Sodium 156 H (137-145) mmol/L Potassium 3.4 (3.4-5.0) mmol/L Chloride 118 H (98-107) mmol/L Carbon Dioxide 23 (22-30) mmol/L Anion Gap 15 H (4-12) mmol/L BUN 46 H D (7-17) mg/dL Creatinine 1.80 H (0.7-1.0) mg/dL Estim Creat Clear Calc Not Reportable Estimated GFR 27 L (59 - ) Glucose 183 H (65-110) mg/dL Lactic Acid 4.3 H* (0.7-2.0) mmol/L Calcium 9.6 (8.4-10.2) mg/dL Total Bilirubin 1.2 (0.2-1.3) mg/dL AST 149 H (14-36) U/L ALT 132 H (6-35) U/L Alkaline Phosphatase 114 (38-126) U/L Troponin I 0.078 H* (0.000-0.034) ng/mL NT-Pro-B Natriuret Pep 1760 H (19.9-100) pg/mL Total Protein 8.0 (6.3-8.2) g/dL Albumin 4.4 (3.5-5.1) g/dL Lipase 295 (23-300) U/L Urine Color (Yellow) Urine Appearance (Clear) Urine pH (5.0-9.0) Ur Specific [place] (1.001-1.035) Urine Protein (Negative) mg/dL Urine Glucose (UA) (Negative) mg/dL Urine Ketones (Negative) mg/dL Ur Blood (Man) (Negative) Urine Nitrate (Negative) Urine Bilirubin (Negative) Urine Urobilinogen (<2.0) mg/dL Leukocyte Esterase Rfl (Negative) GLEN/UL Urine RBC (0-2) /hpf Urine WBC (0-3) /hpf Ur Transition Epith Cell (None Seen) /hpf Urine Bacteria /hpf Nasal MRSA (PCR) Not detected (NOT DETECTE) Influenza A (RT-PCR) Negative (Negative) Influenza B (RT-PCR) Negative (Negative) RSV (RT-PCR) Negative (Negative) SARS-CoV-2 RNA (RT-PCR) Negative (Negative) 07/02/24 07/02/24 07/02/24 Range/Units 00:07 04:14 05:11 WBC 22.7 H (4.5-10.0) K/mm3 RBC 4.29 (4.2-5.4) M/mm3 Hgb 12.6 (12.0-15.0) g/dL Hct 40.6 (37.0-47.0) % MCV 94.6 (80-100) fl MCH 29.4 (26-34) pg MCHC 31.0 L (32-36) g/dl RDW 14.6 H (11.5-14.5) % Plt Count 422 H (150-375) k/mm3 MPV 10.2 (7.4-10.4) fl Immature Gran % (Auto) Not Reportable Neut % (Auto) Not Reportable Lymph % (Auto) Not Reportable [place] % (Auto) Not Reportable Eos % (Auto) Not Reportable Baso % (Auto) Not Reportable Lymph # (Auto) Not Reportable [place] # (Auto) Not Reportable Eos # (Auto) Not Reportable Baso # (Auto) Not Reportable Abs Immat Gran (auto) Not Reportable Absolute Neuts (auto) Not Reportable Absolute Nucleated RBC Not Reportable Total Counted 100 Neutrophils % (Manual) 68 (46-73) % Band Neutrophils % 10 H (0-6) % Lymphocytes % (Manual) 20.0 (18-44) % Monocytes % (Manual) 2 L (3-9) % Eosinophils % (Manual) (0-4) % Basophils % (Manual) (0-1) % Nucleated RBC % Not Reportable Abs Neuts (Manual) 17.70 H (1.7-7.2) K/mm3 Abs Lymphs (Manual) 4.54 H (1.1-4.5) K/mm3 Abs Monocytes (Manual) 0.45 (0.1-0.90) K/mm3 Absolute Eos (Manual) (0.02-0.50) K/mm3 Abs Basophils (Manual) (0.0-0.1) K/mm3 Nucleated RBCs 1 % Platelet Estimate Increased (Adequate) Large Platelets Present Giant Platelets Hypochromasia Anisocytosis 1+ Tear Drop Cells 1+ [place] Cells 1+ Schistocytes None seen PT (11.1-14.7) Seconds INR APTT (22.3-36.8) Seconds Sodium 154 H (137-145) mmol/L Potassium 3.4 (3.4-5.0) mmol/L Chloride 126 H (98-107) mmol/L Carbon Dioxide 22 (22-30) mmol/L Anion Gap 6 (4-12) mmol/L BUN 50 H (7-17) mg/dL Creatinine 1.80 H 1.70 H (0.7-1.0) mg/dL Estim Creat Clear Calc Not Reportable Not Reportable Estimated GFR 27 L 29 L (59 - ) Glucose 145 H (65-110) mg/dL Lactic Acid 1.8 (0.7-2.0) mmol/L Calcium 7.9 L (8.4-10.2) mg/dL Total Bilirubin 0.8 (0.2-1.3) mg/dL AST 94 H (14-36) U/L ALT 89 H (6-35) U/L Alkaline Phosphatase 91 (38-126) U/L Troponin I 0.118 H* D 0.112 H* (0.000-0.034) ng/mL NT-Pro-B Natriuret Pep (19.9-100) pg/mL Total Protein 6.0 L (6.3-8.2) g/dL Albumin 3.1 L (3.5-5.1) g/dL Lipase (23-300) U/L Urine Color (Yellow) Urine Appearance (Clear) Urine pH (5.0-9.0) Ur Specific [place] (1.001-1.035) Urine Protein (Negative) mg/dL Urine Glucose (UA) (Negative) mg/dL Urine Ketones (Negative) mg/dL Ur Blood (Man) (Negative) Urine Nitrate (Negative) Urine Bilirubin (Negative) Urine Urobilinogen (<2.0) mg/dL Leukocyte Esterase Rfl (Negative) GLEN/UL Urine RBC (0-2) /hpf Urine WBC (0-3) /hpf Ur Transition Epith Cell (None Seen) /hpf Urine Bacteria /hpf Nasal MRSA (PCR) (NOT DETECTE) Influenza A (RT-PCR) (Negative) Influenza B (RT-PCR) (Negative) RSV (RT-PCR) (Negative) SARS-CoV-2 RNA (RT-PCR) (Negative) 07/02/24 Range/Units 11:35 WBC (4.5-10.0) K/mm3 RBC (4.2-5.4) M/mm3 Hgb (12.0-15.0) g/dL Hct (37.0-47.0) % MCV (80-100) fl MCH (26-34) pg MCHC (32-36) g/dl RDW (11.5-14.5) % Plt Count (150-375) k/mm3 MPV (7.4-10.4) fl Immature Gran % (Auto) Neut % (Auto) Lymph % (Auto) Mcdowell % (Auto) Eos % (Auto) Baso % (Auto) Lymph # (Auto) Mcdowell # (Auto) Eos # (Auto) Baso # (Auto) Abs Immat Gran (auto) Absolute Neuts (auto) Absolute Nucleated RBC Total Counted Neutrophils % (Manual) (46-73) % Band Neutrophils % (0-6) % Lymphocytes % (Manual) (18-44) % Monocytes % (Manual) (3-9) % Eosinophils % (Manual) (0-4) % Basophils % (Manual) (0-1) % Nucleated RBC % Abs Neuts (Manual) (1.7-7.2) K/mm3 Abs Lymphs (Manual) (1.1-4.5) K/mm3 Abs Monocytes (Manual) (0.1-0.90) K/mm3 Absolute Eos (Manual) (0.02-0.50) K/mm3 Abs Basophils (Manual) (0.0-0.1) K/mm3 Nucleated RBCs % Platelet Estimate (Adequate) Large Platelets Giant Platelets Hypochromasia Anisocytosis Tear Drop Cells [place] Cells Schistocytes PT (11.1-14.7) Seconds INR APTT (22.3-36.8) Seconds Sodium (137-145) mmol/L Potassium (3.4-5.0) mmol/L Chloride (98-107) mmol/L Carbon Dioxide (22-30) mmol/L Anion Gap (4-12) mmol/L BUN (7-17) mg/dL Creatinine (0.7-1.0) mg/dL Estim Creat Clear Calc Estimated GFR (59 - ) Glucose (65-110) mg/dL Lactic Acid (0.7-2.0) mmol/L Calcium (8.4-10.2) mg/dL Total Bilirubin (0.2-1.3) mg/dL AST (14-36) U/L ALT (6-35) U/L Alkaline Phosphatase (38-126) U/L Troponin I (0.000-0.034) ng/mL NT-Pro-B Natriuret Pep (19.9-100) pg/mL Total Protein (6.3-8.2) g/dL Albumin (3.5-5.1) g/dL Lipase (23-300) U/L Urine Color Yellow (Yellow) Urine Appearance Sl cloudy (Clear) Urine pH 5.5 (5.0-9.0) Ur Specific [place] 1.020 (1.001-1.035) Urine Protein 2+ H (Negative) mg/dL Urine Glucose (UA) Negative (Negative) mg/dL Urine Ketones Negative (Negative) mg/dL Ur Blood (Man) 3+ H (Negative) Urine Nitrate Negative (Negative) Urine Bilirubin 1+ H (Negative) Urine Urobilinogen 0.2 (<2.0) mg/dL Leukocyte Esterase Rfl Trace H (Negative) GLEN/UL Urine RBC 6-10 H (0-2) /hpf Urine WBC 0-5 (0-3) /hpf Ur Transition Epith Cell Few H (None Seen) /hpf Urine Bacteria 1+ /hpf Nasal MRSA (PCR) (NOT DETECTE) Influenza A (RT-PCR) (Negative) Influenza B (RT-PCR) (Negative) RSV (RT-PCR) (Negative) SARS-CoV-2 RNA (RT-PCR) (Negative) <Flora Velasquez MD - Last Filed: 07/02/24 06:44> Imaging Data Attestation: I personally reviewed and interpreted this imaging study as follows: <Hiwot Duque MD - Last Filed: 07/02/24 20:36> Radiologist's impression: ITS Impressions Chest/Abdomen/Pelvis CTA 07/01/24 21:35 IMPRESSION: No acute pulmonary embolus. No acute intrathoracic process detected. 4.1 cm right thyroid mass. Consider nonemergent, outpatient thyroid ultrasound for further characterization, if/when clinically appropriate. 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 Moderate volume free pelvic fluid is of a similar density and may also represent bile. Recommend MR MRCP without and with contrast for further evaluation. Indeterminate 1.6 cm left adrenal nodule. Indeterminate 1.6 cm right midpole renal lesion. Long segment sigmoid wall thickening in an area of pronounced diverticulosis. Early diverticulitis or colitis could have this appearance. A colonic mass is not excluded, consider endoscopy referral if/when clinically appropriate. Bladder wall edema, as can be seen with cystitis. ADDENDUM: 07/01/242323 For further clarification, infected bile and/or hemorrhage may be present in the subcapsular and pelvic fluid collections. Results reported telephonically to Dr. Velasquez by Dr. Gill at 11:20 PM on 07/01/2024. Abdomen X-Ray 07/02/24 06:02 IMPRESSION: 1. Nasogastric tube tip in the distal stomach. <Hiwot Duque MD - Last Filed: 07/02/24 20:36> ITS Impressions Chest/Abdomen/Pelvis CTA 07/01/24 21:35 IMPRESSION: No acute pulmonary embolus. No acute intrathoracic process detected. 4.1 cm right thyroid mass. Consider nonemergent, outpatient thyroid ultrasound for further characterization, if/when clinically appropriate. 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 Moderate volume free pelvic fluid is of a similar density and may also represent bile. Recommend MR MRCP without and with contrast for further evaluation. Indeterminate 1.6 cm left adrenal nodule. Indeterminate 1.6 cm right midpole renal lesion. Long segment sigmoid wall thickening in an area of pronounced diverticulosis. Early diverticulitis or colitis could have this appearance. A colonic mass is not excluded, consider endoscopy referral if/when clinically appropriate. Bladder wall edema, as can be seen with cystitis. ADDENDUM: 07/01/242323 For further clarification, infected bile and/or hemorrhage may be present in the subcapsular and pelvic fluid collections. Results reported telephonically to Dr. Velasquez by Dr. Gill at 11:20 PM on 07/01/2024. Abdomen X-Ray 07/02/24 06:02 IMPRESSION: 1. Nasogastric tube tip in the distal stomach. <Flora Velasquez MD - Last Filed: 07/02/24 06:44> Critical Care Time Critical Care Time Critical Care Time: Yes <Hiwot Duque MD - Last Filed: 07/02/24 20:36> Total Critical Care Time: 75 <Hiwot Duque MD - Last Filed: 07/02/24 20:36> 67 (Please refer to [facility] for attestation.) <Flora Velasquez MD - Last Filed: 07/02/24 06:44> Discharge Plan Discharge Clinical Impression: Biliary tract neoplasm, Septic shock, Colon wall thickening, Free fluid in pelvis, Bile leak, Acute hypernatremia, Transaminitis, SHAHBAZ (acute kidney injury), Non-ST elevation SC (NSTEMI) Dementia Qualifiers: Dementia type: unspecified type Dementia severity: unspecified severity Dementia behavioral or psychological symptom: with other behavioral disturbance Qualified Code(s): F03.918 - Unspecified dementia, unspecified severity, with other behavioral disturbance <Hiwot Duque MD - Last Filed: 07/02/24 20:36> Patient Disposition: [facility] <Hiwot Duque MD - Last Filed: 07/02/24 20:36> Condition: Terminal <Hiwot Duque MD - Last Filed: 07/02/24 20:36> Time of Disposition: 02:25 <Hiwot Duque MD - Last Filed: 07/02/24 20:36> 02:25 <Flora Velasquez MD - Last Filed: 07/02/24 06:44> This report may have been done utilizing a voice recognition system. Attempts have been made to correct errors. However, there may be uncorrected grammatical, spelling, and recognition errors present. Report Initialized date/time: Hiwot Duque MD 07/01/241955 Electronically signed by: Hiwot Duque MD 07/02/242035 Flora Velasquez MD 07/02/24 0644 [facility]
--- NOTE | 2024-07-01 19:58 | ECG_ITS ---
Electrocardiograph Report Signed Patient: Christen Gonzalez : 1945 MR#: [id number] Age: 78 Acct:[id number] Loc: [facility] ADM Date: 07/01/[address]: Ordering Physician: Hiwot Duque MD Date of Service: 07/01/24 Procedure(s): CA 12 lead EKG Accession Number(s): [id number] cc: ~ Test Date: 2024-07-01 20:27:46 Measurements Intervals [place] Rate: 122 P: 61 VA: 150 QRS: 19 QRSD: 89 T: 61 QT: 358 QTc: 510 Interpretive Statements SINUS TACHYCARDIA ST DEVIATION AND MODERATE T-WAVE ABNORMALITY, CONSIDER ANTERIOR ISCHEMIA [-0.1+ mV T WAVE IN V3/V4] No previous ECG available for comparison Electronically Signed On 07-02-2024 14:57:21 OXYACETYLENE TORCH OPERATOR by Savita Bauman M.D. Dictated By: Savita Bauman MD 07/01/242026 Signed By: <Electronically signed by Savita Bauman MD in OV> 07/02/24 0562 [facility]
--- NOTE | 2024-07-02 00:05 | ECG_ITS ---
Electrocardiograph Report Signed Patient: Christen Gonzalez : 1945 MR#: [id number] Age: 78 Acct:[id number] Loc: [facility] ADM Date: 07/01/[address]: Ordering Physician: Flora Velasquez MD Date of Service: 07/02/24 Procedure(s): CA 12 lead EKG Accession Number(s): [id number] cc: ~ Test Date: 2024-07-02 00:05:48 Measurements Intervals [place] Rate: 115 P: 65 PA: 148 QRS: 20 QRSD: 92 T: 64 QT: 346 QTc: 479 Interpretive Statements SINUS TACHYCARDIA LOW QRS VOLTAGE IN PRECORDIAL LEADS [QRS DEFLECTION < 1.0 mV IN CHEST LEADS] ST DEVIATION AND MODERATE T-WAVE ABNORMALITY, CONSIDER ANTERIOR ISCHEMIA [-0.1+ mV T-WAVE IN V3/V4] Compared to ECG 07/01/2024 20:27:46 Low QRS voltage now present T-wave abnormality still present Possible ischemia still present Electronically Signed On 07-02-2024 14:53:41 BOAT DRIVER by Savita Bauman M.D. Dictated By: Savita Bauman MD 07/02/24 0005 Signed By: <Electronically signed by Savita Bauman MD in OV> 07/02/24 1454 MTDD
== END 2024-07-02 19:04 | disposition hospice, inpatient (51) ==
PROVIDERS: Emergency Provider Emergency Medicine; PCP Family Medicine
DX: I21.4 Non-ST elevation (NSTEMI) myocardial infarction (principal); N17.9 Acute kidney failure, unspecified; C24.9 Malignant neoplasm of biliary tract, unspecified; K83.2 Perforation of bile duct; R74.01 Elevation of levels of liver transaminase levels; R65.21 Severe sepsis with septic shock; E87.0 Hyperosmolality and hypernatremia; R93.5 Abnormal findings on diagnostic imaging of other abdominal regions, including retroperitoneum; R93.3 Abnormal findings on diagnostic imaging of other parts of digestive tract; Z20.822 Contact with and (suspected) exposure to COVID-19; F01.518 Vascular dementia, unspecified severity, with other behavioral disturbance; I10 Essential (primary) hypertension; E78.5 Hyperlipidemia, unspecified; E55.9 Vitamin D deficiency, unspecified; E53.8 Deficiency of other specified B group vitamins; F17.210 Nicotine dependence, cigarettes, uncomplicated; Z98.49 Cataract extraction status, unspecified eye; Z79.82 Long term (current) use of aspirin; E07.9 Disorder of thyroid, unspecified; E27.9 Disorder of adrenal gland, unspecified; N28.9 Disorder of kidney and ureter, unspecified; K57.90 Diverticulosis of intestine, part unspecified, without perforation or abscess without bleeding; R93.41 Abnormal radiologic findings on diagnostic imaging of renal pelvis, ureter, or bladder; R00.0 Tachycardia, unspecified; R94.31 Abnormal electrocardiogram [ECG] [EKG]
CPT/HCPCS: 71275; 74177; 93005; 99285

== ENCOUNTER 2024-07-01 18:49 | HOS | payer OTHER, MEDICARE, SELFPAY ==
--- NOTE | ~2024-07-01 | CT_ITS ---
EXAMINATION: CTA chest PE abdomen pel DATE: 07/01/2024 21:02 INDICATION: sepsis, abdominal pain, hypoxia TECHNIQUE: Computed tomography angiography (CTA) of the chest was performed with 100 mL Omnipaque-350 intravenous contrast timed to evaluate the pulmonary arteries, followed by portal venous phase imagi ng of the abdomen and pelvis. Coronal maximum intensity projection 3D-reconstructions were created by the technologist. The dose-length product (DLP) was 781.77 mGy-cm. Automated exposure control and it erative reconstruction technique were employed. COMPARISON: None. FINDINGS: CHEST: Lung parenchyma and airways: Motion artifact in the lower lungs. Patent airways. Emphysematous change s. Pleura: Unremarkable. Thoracic inlet, axillae and chest wall: Partially calcified 4.1 cm right thyroid mass. Thoracic aorta: Mild atherosclerotic plaque. No significant ectasia or dissection. Mediastinum: Patulous, fluid-filled esophagus. Heart and pericardium: Normal. Coronary artery calcifications: Mild. Thoracic bones: No acute osseous finding. Pulmonary arteries: Study quality: Adequate. No pulmonary emboli detected. ABDOMEN/PELVIS: Liver: Multiple simple hepatic cysts, measuring up to 5.0 cm in the right liver lobe. Biliary/Gallbladder: Gallbladder is normal. 3.6 x 4.7 cm enhancing probably intraductal mass at the p pamela hepatis, with marked upstream biliary duct dilation. Markedly dilated ducts in the right lobe ex tending through the hepatic parenchyma and are apparently communication with a large subcapsular halie ection. Pancreas: No mass or duct dilation. Spleen: Normal. Adrenals:Indeterminate density 1.6 cm left adrenal nodule Kidneys: 1.6 cm indeterminate density right midpole lesion. Multiple simple bilateral renal cysts. Mu ltiple subcentimeter hypodensities that are too small to characterize. GI tract: No small or large bowel dilation. Normal appendix. Diverticulosis without diverticulitis. M oderate length segment of marked diverticulosis (including a large stool-filled diverticulum), with a pparent luminal narrowing, and possible proximal shouldering in the mid sigmoid. Mesentery/Peritoneum: No ascites, mass, or free air. Retroperitoneum: No mass. Pelvis: Moderate free pelvic fluid, similar density to the subhepatic collection. Small atrophic uter us. 2.7 cm fibroid. Soft Tissues: Small fat-containing left inguinal hernia. Abdominopelvic bones: No acute osseous finding. IMPRESSION: No acute pulmonary embolus. No acute intrathoracic process detected. 4.1 cm right thyroid mass. Consider nonemergent, outpatient thyroid ultrasound for further characteri zation, if/when clinically appropriate. 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 Moderate volume free pelvic fluid is of a similar density and may also represent bile. Recommend MR MRCP without and with contrast for further evaluat ion. Indeterminate 1.6 cm left adrenal nodule. Indeterminate 1.6 cm right midpole renal lesion. Long segment sigmoid wall thickening in an area of pronounced diverticulosis. Early diverticulitis or colitis could have this appearance. A colonic mass is not excluded, consider endoscopy referral if/w hen clinically appropriate. Bladder wall edema, as can be seen with cystitis. Reviewed, dictated and finalized at location K. STRIAL RECRUITER
--- NOTE | ~2024-07-01 | XR_ITS ---
EXAMINATION: XR abdomen gastric tube insert DATE: 07/02/2024 05:08 INDICATION: Nasogastric tube placement. TECHNIQUE: A supine view of the abdomen was obtained. COMPARISON: CT abdomen and pelvis 07/01/2024 FINDINGS: The lower abdomen is excluded. There are no dilated loops of bowel. The nasogastric tube ti p is in the distal stomach. IMPRESSION: 1. Nasogastric tube tip in the distal stomach. Reviewed, dictated and finalized at location A. CLERK
[2024-07-01 19:42] VITALS: BP 90/60; PULSE 140; RESP 14; TEMP 36.4; O2SAT 89
--- NOTE | 2024-07-01 19:56 | ED_ITS ---
HPI - Abdominal Pain General Chief Complaint: Abdominal Pain <Hiwot Duque MD - Last Filed: 07/02/24 20:36> Stated Complaint: abd pain <Hiwot Duque MD - Last Filed: 07/02/24 20:36> Time Seen by Provider: 07/01/24 19:43 <Hiwot Duque MD - Last Filed: 07/02/24 20:36> History of Present Illness HPI narrative: 78-year-old female presenting with abdominal pain. Patient has dementia and resides at a nursing facility. She apparently started complaining about abdominal pain earlier today. On my evaluation, she denies complaints. She is A&O x1 which is her baseline. <Hiwot Duque MD - Last Filed: 07/02/24 20:36> Related Data Home Medications: Home Medications ?Medication ?Instructions ?Recorded ?Confirmed ?Last Taken ?Type aspirin 81 mg tablet,delayed 81 mg PO DAILY 11/01/21 06/28/22 Unknown History release <Hiwot Duque MD - Last Filed: 07/02/24 20:36> Allergies/Adverse Reactions: Allergies Allergy/AdvReac Type Severity Reaction Status Date / Time alendronate sodium Allergy Unknown rash Verified 12/23/21 13:45 aspirin Allergy Other Verified 03/31/23 05:32 [id number] Reductase AdvReac Unknown Nausea And Verified 02/18/23 13:25 Inhibitor (Rvrapqd-[id number]-[id number] Vomiting Reductase Inhibitor) <Hiwot Duque MD - Last Filed: 07/02/24 20:36> Review of Systems 2 Review of Systems: ROS unobtainable: Yes unobtainable due to medical condition and other ( Underlying dementia) <Hiwot Duque MD - Last Filed: 07/02/24 20:36> [facility] Past Medical History Medical History: Medical History Thrombocytosis Hyperlipidemia Vitamin D deficiency Vascular dementia B12 deficiency Essential (primary) hypertension <Hiwot Duque MD - Last Filed: 07/02/24 20:36> Surgical History Surgical History: Surgical History H/O cataract extraction <Hiwot Duque MD - Last Filed: 07/02/24 20:36> Family History Family History: Family History Father Cancer of unknown origin <Hiwot Duque MD - Last Filed: 07/02/24 20:36> Social History Social History: Social History Smoking status: Current some day smoker Tobacco type: cigarettes Second hand tobacco smoke exposure: No Alcohol intake: unknown Substance use: unknown Spiritual care concerns: No <Hiwot Duque MD - Last Filed: 07/02/24 20:36> Exam 2 Narrative: GENERAL: chronically ill-appearing, no acute distress HEAD: Normocephalic, atraumatic. EYES: PERRLA and EOMI. ENT: Mucous membranes dry. NECK: Supple. CHEST: coarse breath sounds bilaterally, no respiratory distress HEART: tachycardic, regular rhythm ABDOMEN: Soft, diffuse abdominal tenderness without guarding or rebound EXTREMITIES: Normal range of motion SKIN: Warm, dry, no rash. NEURO: Alert and oriented x1. PSYCH: Normal mood and affect. <Hiwot Duque MD - Last Filed: 07/02/24 20:36> Course Course Emergency Course: Resumed care of this patient pending transfer to [facility] for higher level of care. I spoke with the patient's sister who is her POA. We discussed the terminal nature of her diagnosis and her poor quality of life at this point. The patient's sister would like to transition the patient to comfort measures and start her with a hospice program to focus on making her comfortable to let her pass peacefully. Transfer to [facility] will be canceled and care coordination has been consulted to arrange for hospice management. <Hiwot Duque MD - Last Filed: 07/02/24 20:36> Vital Signs Vital signs: Vital Signs Temperature 97.6 F 07/01/24 19:42 Pulse Rate 140 H 07/01/24 19:42 Respiratory Rate 14 07/01/24 19:42 Blood Pressure 90/60 L 07/01/24 19:42 Pulse Oximetry 89 L 07/01/24 19:42 Temperature 98 F 07/01/24 19:57 Pulse Rate 121 H 07/02/24 18:32 Respiratory Rate 29 H 07/02/24 18:32 Blood Pressure 102/68 07/02/24 18:32 Pulse Oximetry 97 07/02/24 18:32 Oxygen Delivery Non-Rebreather Mask 07/02/24 05:25 Oxygen Flow Rate 15 07/02/24 05:25 <Hiwot Duque MD - Last Filed: 07/02/24 20:36> Vital Signs Temperature 97.6 F 07/01/24 19:42 Pulse Rate 140 H 07/01/24 19:42 Respiratory Rate 14 07/01/24 19:42 Blood Pressure 90/60 L 07/01/24 19:42 Pulse Oximetry 89 L 07/01/24 19:42 Temperature 98 F 07/01/24 19:57 Pulse Rate 121 H 07/02/24 18:32 Respiratory Rate 29 H 07/02/24 18:32 Blood Pressure 102/68 07/02/24 18:32 Pulse Oximetry 97 07/02/24 18:32 Oxygen Delivery Non-Rebreather Mask 07/02/24 05:25 Oxygen Flow Rate 15 07/02/24 05:25 <Flora Velasquez MD - Last Filed: 07/02/24 06:44> MDM - Abdominal Pain MDM Narrative Medical decision making narrative: 6-year-old female presenting with abdominal pain. On arrival, patient is tachycardic with some soft pressures. Hypoxic on room air. Fluids started, placed on nasal cannula with improvement in her saturations. Blood work is concerning for a white count of 29. Sodium 156, creatinine 1.8, BUN 46. 3 L of fluids have been ordered. <Hiwot Duque MD - Last Filed: 07/02/24 20:36> 78-year-old female presenting with abdominal pain. On arrival, patient is tachycardic with some soft pressures. Hypoxic on room air. Fluids started, placed on nasal cannula with improvement in her saturations. Blood work is concerning for a white count of 29. Sodium 156, creatinine 1.8, BUN 46. 3 L of fluids have been ordered. Eva: Patient was signed out to me by Dr. Erwin pending remainder of the workup including a CT angio chest/abdomen/pelvis. The patient was evaluated by myself in the emergency department. History is obtained from EMS report and physical exam was performed. External medical records were reviewed at this time. IV was established and pertinent tests were ordered. Patient was administered a total of a 3 L IV fluid bolus which is her full sepsis bolus and started immediately on broad-spectrum antibiotic with vancomycin and cefepime due to concern for sepsis, pending source identification. Laboratory results obtained revealing a repeat lactic acid of 1.8 which improved from initial lactic acid of 4.3. Patient's initial troponin was elevated at 0.078 with repeat 3 hour troponin of 0.118. At this time patient was continued on maintenance fluids with LR at a rate of 100 cc/hour. Imaging studies obtained included CT angio chest/abdomen/pelvis with IV contrast which was independently interpreted by me revealing: No acute pulmonary embolus. No acute intrathoracic process detected. 4.1 cm right thyroid mass. Consider nonemergent, outpatient thyroid ultrasound for further characterization, if/when clinically appropriate. 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 Moderate volume free pelvic fluid is of a similar density and may also represent bile. Recommend MR MRCP without and with contrast for further evaluation. Indeterminate 1.6 cm left adrenal nodule. Indeterminate 1.6 cm right midpole renal lesion. Long segment sigmoid wall thickening in an area of pronounced diverticulosis. Early diverticulitis or colitis could have this appearance. A colonic mass is not excluded, consider endoscopy referral if/when clinically appropriate. Bladder wall edema, as can be seen with cystitis. IV Flagyl 500 mg Q 8 hours was added to patient's antibiotic regimen. At this time, case was discussed with the on-call plasterer apprentice Dr. Esqueda at [phone] who recommended transferring the patient to a higher level of care for hepatobiliary services. The [facility] transfer line was contacted at [phone] and transfer was initiated. I did receive a call back from them at [phone] informing me that after discussing the case with hepatobiliary who reviewed the patient's CT images they concluded that the patient's condition is to advance an as of right now she is not a surgical candidate, they recommend medical admission for decompression, IR/GI evaluation while patient is continued on IV antibiotics. They can be consulted on the patient and will follow her progress and reassess her at a later time to see if she may be a surgical candidate at this time. Case was discussed with the on-call hospitalist Dr. Padilla at [facility] who accepted the transfer as a medical transfer. Patient is now pending a bed at [facility] with an estimated weight time of 11 days. Patient's sister is her power of fan installer and she will be contacted at this time to obtain consent for patient transport. [facility] did call back and request that an NG tube be placed. Differential diagnosis considerations include sepsis secondary to infectious process such as pneumonia, UTI, GI process, dehydration, electrolyte derangements, bowel obstruction, acute viral syndrome. Comorbidities impacting this visit include history of vascular dementia. I have evaluated and discussed social determinants of health with the patient that could potentially impact subsequent diagnosis and treatment plans. Critical care time of 67 minutes, exclusive of separately performed procedures, necessary for treating or preventing eminent or life-threatening deterioration of patient's condition of septic shock, focused on patient care provided personally by me and time spent during physical examination, ordering and performing treatments and interventions, reviewing laboratory and radiographic studies, re-evaluation of the patient's condition and patient's response to treatment, and discussion of patient case with multiple consultants. <Flora Velasquez MD - Last Filed: 07/02/24 06:44> Differential Diagnosis Differential diagnosis: Likely abdominal pain, constipation, diverticulitis, gastroenteritis, pancreatitis and small bowel obstruction <Hiwot Duque MD - Last Filed: 07/02/24 20:36> Medical Records Attestation: I reviewed the patient's medical records. <Hiwot Duque MD - Last Filed: 07/02/24 20:36> Lab Data Attestation: I reviewed the patient's lab results. <Hiwot Duque MD - Last Filed: 07/02/24 20:36> Result diagrams: 07/02/24 04:14 07/02/24 05:11 <Hiwot Duque MD - Last Filed: 07/02/24 20:36> Labs: Lab Results 07/01/24 07/01/24 07/01/24 Range/Units 19:56 20:44 22:54 WBC 29.0 H (4.5-10.0) K/mm3 RBC 4.18 L (4.2-5.4) M/mm3 Hgb 12.3 (12.0-15.0) g/dL Hct 39.5 (37.0-47.0) % MCV 94.5 (80-100) fl MCH 29.4 (26-34) pg MCHC 31.1 L (32-36) g/dl RDW 14.6 H (11.5-14.5) % Plt Count 458 H (150-375) k/mm3 MPV 10.7 H (7.4-10.4) fl Immature Gran % (Auto) Not Reportable Neut % (Auto) Not Reportable Lymph % (Auto) Not Reportable Anson % (Auto) Not Reportable Eos % (Auto) Not Reportable Baso % (Auto) Not Reportable Lymph # (Auto) Not Reportable [place]son # (Auto) Not Reportable Eos # (Auto) Not Reportable Baso # (Auto) Not Reportable Abs Immat Gran (auto) Not Reportable Absolute Neuts (auto) Not Reportable Absolute Nucleated RBC Not Reportable Total Counted 100 Neutrophils % (Manual) 87 H (46-73) % Band Neutrophils % 1 (0-6) % Lymphocytes % (Manual) 6 L (18-44) % Monocytes % (Manual) 6 (3-9) % Eosinophils % (Manual) 0 (0-4) % Basophils % (Manual) 0 (0-1) % Nucleated RBC % Not Reportable Abs Neuts (Manual) 25.52 H (1.7-7.2) K/mm3 Abs Lymphs (Manual) 1.74 (1.1-4.5) K/mm3 Abs Monocytes (Manual) 1.74 H (0.1-0.90) K/mm3 Absolute Eos (Manual) 0.00 L (0.02-0.50) K/mm3 Abs Basophils (Manual) 0.00 (0.0-0.1) K/mm3 Nucleated RBCs % Platelet Estimate Increased (Adequate) Large Platelets Present Giant Platelets Present Hypochromasia 1+ Anisocytosis 1+ Tear Drop Cells Blackwell Cells Schistocytes None seen PT 15.9 H (11.1-14.7) Seconds INR 1.2 APTT 22.6 (22.3-36.8) Seconds Sodium 156 H (137-145) mmol/L Potassium 3.4 (3.4-5.0) mmol/L Chloride 118 H (98-107) mmol/L Carbon Dioxide 23 (22-30) mmol/L Anion Gap 15 H (4-12) mmol/L BUN 46 H D (7-17) mg/dL Creatinine 1.80 H (0.7-1.0) mg/dL Estim Creat Clear Calc Not Reportable Estimated GFR 27 L (59 - ) Glucose 183 H (65-110) mg/dL Lactic Acid 4.3 H* (0.7-2.0) mmol/L Calcium 9.6 (8.4-10.2) mg/dL Total Bilirubin 1.2 (0.2-1.3) mg/dL AST 149 H (14-36) U/L ALT 132 H (6-35) U/L Alkaline Phosphatase 114 (38-126) U/L Troponin I 0.078 H* (0.000-0.034) ng/mL NT-Pro-B Natriuret Pep 1760 H (19.9-100) pg/mL Total Protein 8.0 (6.3-8.2) g/dL Albumin 4.4 (3.5-5.1) g/dL Lipase 295 (23-300) U/L Urine Color (Yellow) Urine Appearance (Clear) Urine pH (5.0-9.0) Ur Specific [place] (1.001-1.035) Urine Protein (Negative) mg/dL Urine Glucose (UA) (Negative) mg/dL Urine Ketones (Negative) mg/dL Ur Blood (Man) (Negative) Urine Nitrate (Negative) Urine Bilirubin (Negative) Urine Urobilinogen (<2.0) mg/dL Leukocyte Esterase Rfl (Negative) GLEN/UL Urine RBC (0-2) /hpf Urine WBC (0-3) /hpf Ur Transition Epith Cell (None Seen) /hpf Urine Bacteria /hpf Nasal MRSA (PCR) Not detected (NOT DETECTE) Influenza A (RT-PCR) Negative (Negative) Influenza B (RT-PCR) Negative (Negative) RSV (RT-PCR) Negative (Negative) SARS-CoV-2 RNA (RT-PCR) Negative (Negative) 07/02/24 07/02/24 07/02/24 Range/Units 00:07 04:14 05:11 WBC 22.7 H (4.5-10.0) K/mm3 RBC 4.29 (4.2-5.4) M/mm3 Hgb 12.6 (12.0-15.0) g/dL Hct 40.6 (37.0-47.0) % MCV 94.6 (80-100) fl MCH 29.4 (26-34) pg MCHC 31.0 L (32-36) g/dl RDW 14.6 H (11.5-14.5) % Plt Count 422 H (150-375) k/mm3 MPV 10.2 (7.4-10.4) fl Immature Gran % (Auto) Not Reportable Neut % (Auto) Not Reportable Lymph % (Auto) Not Reportable Anson % (Auto) Not Reportable Eos % (Auto) Not Reportable Baso % (Auto) Not Reportable Lymph # (Auto) Not Reportable Anson # (Auto) Not Reportable Eos # (Auto) Not Reportable Baso # (Auto) Not Reportable Abs Immat Gran (auto) Not Reportable Absolute Neuts (auto) Not Reportable Absolute Nucleated RBC Not Reportable Total Counted 100 Neutrophils % (Manual) 68 (46-73) % Band Neutrophils % 10 H (0-6) % Lymphocytes % (Manual) 20.0 (18-44) % Monocytes % (Manual) 2 L (3-9) % Eosinophils % (Manual) (0-4) % Basophils % (Manual) (0-1) % Nucleated RBC % Not Reportable Abs Neuts (Manual) 17.70 H (1.7-7.2) K/mm3 Abs Lymphs (Manual) 4.54 H (1.1-4.5) K/mm3 Abs Monocytes (Manual) 0.45 (0.1-0.90) K/mm3 Absolute Eos (Manual) (0.02-0.50) K/mm3 Abs Basophils (Manual) (0.0-0.1) K/mm3 Nucleated RBCs 1 % Platelet Estimate Increased (Adequate) Large Platelets Present Giant Platelets Hypochromasia Anisocytosis 1+ Tear Drop Cells 1+ Blackwell Cells 1+ Schistocytes None seen PT (11.1-14.7) Seconds INR APTT (22.3-36.8) Seconds Sodium 154 H (137-145) mmol/L Potassium 3.4 (3.4-5.0) mmol/L Chloride 126 H (98-107) mmol/L Carbon Dioxide 22 (22-30) mmol/L Anion Gap 6 (4-12) mmol/L BUN 50 H (7-17) mg/dL Creatinine 1.80 H 1.70 H (0.7-1.0) mg/dL Estim Creat Clear Calc Not Reportable Not Reportable Estimated GFR 27 L 29 L (59 - ) Glucose 145 H (65-110) mg/dL Lactic Acid 1.8 (0.7-2.0) mmol/L Calcium 7.9 L (8.4-10.2) mg/dL Total Bilirubin 0.8 (0.2-1.3) mg/dL AST 94 H (14-36) U/L ALT 89 H (6-35) U/L Alkaline Phosphatase 91 (38-126) U/L Troponin I 0.118 H* D 0.112 H* (0.000-0.034) ng/mL NT-Pro-B Natriuret Pep (19.9-100) pg/mL Total Protein 6.0 L (6.3-8.2) g/dL Albumin 3.1 L (3.5-5.1) g/dL Lipase (23-300) U/L Urine Color (Yellow) Urine Appearance (Clear) Urine pH (5.0-9.0) Ur Specific [place] (1.001-1.035) Urine Protein (Negative) mg/dL Urine Glucose (UA) (Negative) mg/dL Urine Ketones (Negative) mg/dL Ur Blood (Man) (Negative) Urine Nitrate (Negative) Urine Bilirubin (Negative) Urine Urobilinogen (<2.0) mg/dL Leukocyte Esterase Rfl (Negative) GLEN/UL Urine RBC (0-2) /hpf Urine WBC (0-3) /hpf Ur Transition Epith Cell (None Seen) /hpf Urine Bacteria /hpf Nasal MRSA (PCR) (NOT DETECTE) Influenza A (RT-PCR) (Negative) Influenza B (RT-PCR) (Negative) RSV (RT-PCR) (Negative) SARS-CoV-2 RNA (RT-PCR) (Negative) 07/02/24 Range/Units 11:35 WBC (4.5-10.0) K/mm3 RBC (4.2-5.4) M/mm3 Hgb (12.0-15.0) g/dL Hct (37.0-47.0) % MCV (80-100) fl MCH (26-34) pg MCHC (32-36) g/dl RDW (11.5-14.5) % Plt Count (150-375) k/mm3 MPV (7.4-10.4) fl Immature Gran % (Auto) Neut % (Auto) Lymph % (Auto) Anson % (Auto) Eos % (Auto) Baso % (Auto) Lymph # (Auto) [place]son # (Auto) Eos # (Auto) Baso # (Auto) Abs Immat Gran (auto) Absolute Neuts (auto) Absolute Nucleated RBC Total Counted Neutrophils % (Manual) (46-73) % Band Neutrophils % (0-6) % Lymphocytes % (Manual) (18-44) % Monocytes % (Manual) (3-9) % Eosinophils % (Manual) (0-4) % Basophils % (Manual) (0-1) % Nucleated RBC % Abs Neuts (Manual) (1.7-7.2) K/mm3 Abs Lymphs (Manual) (1.1-4.5) K/mm3 Abs Monocytes (Manual) (0.1-0.90) K/mm3 Absolute Eos (Manual) (0.02-0.50) K/mm3 Abs Basophils (Manual) (0.0-0.1) K/mm3 Nucleated RBCs % Platelet Estimate (Adequate) Large Platelets Giant Platelets Hypochromasia Anisocytosis Tear Drop Cells Blackwell Cells Schistocytes PT (11.1-14.7) Seconds INR APTT (22.3-36.8) Seconds Sodium (137-145) mmol/L Potassium (3.4-5.0) mmol/L Chloride (98-107) mmol/L Carbon Dioxide (22-30) mmol/L Anion Gap (4-12) mmol/L BUN (7-17) mg/dL Creatinine (0.7-1.0) mg/dL Estim Creat Clear Calc Estimated GFR (59 - ) Glucose (65-110) mg/dL Lactic Acid (0.7-2.0) mmol/L Calcium (8.4-10.2) mg/dL Total Bilirubin (0.2-1.3) mg/dL AST (14-36) U/L ALT (6-35) U/L Alkaline Phosphatase (38-126) U/L Troponin I (0.000-0.034) ng/mL NT-Pro-B Natriuret Pep (19.9-100) pg/mL Total Protein (6.3-8.2) g/dL Albumin (3.5-5.1) g/dL Lipase (23-300) U/L Urine Color Yellow (Yellow) Urine Appearance Sl cloudy (Clear) Urine pH 5.5 (5.0-9.0) Ur Specific [place] 1.020 (1.001-1.035) Urine Protein 2+ H (Negative) mg/dL Urine Glucose (UA) Negative (Negative) mg/dL Urine Ketones Negative (Negative) mg/dL Ur Blood (Man) 3+ H (Negative) Urine Nitrate Negative (Negative) Urine Bilirubin 1+ H (Negative) Urine Urobilinogen 0.2 (<2.0) mg/dL Leukocyte Esterase Rfl Trace H (Negative) GLEN/UL Urine RBC 6-10 H (0-2) /hpf Urine WBC 0-5 (0-3) /hpf Ur Transition Epith Cell Few H (None Seen) /hpf Urine Bacteria 1+ /hpf Nasal MRSA (PCR) (NOT DETECTE) Influenza A (RT-PCR) (Negative) Influenza B (RT-PCR) (Negative) RSV (RT-PCR) (Negative) SARS-CoV-2 RNA (RT-PCR) (Negative) <Hiwot Duque MD - Last Filed: 07/02/24 20:36> Lab Results 07/01/24 07/01/24 07/01/24 Range/Units 19:56 20:44 22:54 WBC 29.0 H (4.5-10.0) K/mm3 RBC 4.18 L (4.2-5.4) M/mm3 Hgb 12.3 (12.0-15.0) g/dL Hct 39.5 (37.0-47.0) % MCV 94.5 (80-100) fl MCH 29.4 (26-34) pg MCHC 31.1 L (32-36) g/dl RDW 14.6 H (11.5-14.5) % Plt Count 458 H (150-375) k/mm3 MPV 10.7 H (7.4-10.4) fl Immature Gran % (Auto) Not Reportable Neut % (Auto) Not Reportable Lymph % (Auto) Not Reportable Anson % (Auto) Not Reportable Eos % (Auto) Not Reportable Baso % (Auto) Not Reportable Lymph # (Auto) Not Reportable [place]son # (Auto) Not Reportable Eos # (Auto) Not Reportable Baso # (Auto) Not Reportable Abs Immat Gran (auto) Not Reportable Absolute Neuts (auto) Not Reportable Absolute Nucleated RBC Not Reportable Total Counted 100 Neutrophils % (Manual) 87 H (46-73) % Band Neutrophils % 1 (0-6) % Lymphocytes % (Manual) 6 L (18-44) % Monocytes % (Manual) 6 (3-9) % Eosinophils % (Manual) 0 (0-4) % Basophils % (Manual) 0 (0-1) % Nucleated RBC % Not Reportable Abs Neuts (Manual) 25.52 H (1.7-7.2) K/mm3 Abs Lymphs (Manual) 1.74 (1.1-4.5) K/mm3 Abs Monocytes (Manual) 1.74 H (0.1-0.90) K/mm3 Absolute Eos (Manual) 0.00 L (0.02-0.50) K/mm3 Abs Basophils (Manual) 0.00 (0.0-0.1) K/mm3 Nucleated RBCs % Platelet Estimate Increased (Adequate) Large Platelets Present Giant Platelets Present Hypochromasia 1+ Anisocytosis 1+ Tear Drop Cells Blackwell Cells Schistocytes None seen PT 15.9 H (11.1-14.7) Seconds INR 1.2 APTT 22.6 (22.3-36.8) Seconds Sodium 156 H (137-145) mmol/L Potassium 3.4 (3.4-5.0) mmol/L Chloride 118 H (98-107) mmol/L Carbon Dioxide 23 (22-30) mmol/L Anion Gap 15 H (4-12) mmol/L BUN 46 H D (7-17) mg/dL Creatinine 1.80 H (0.7-1.0) mg/dL Estim Creat Clear Calc Not Reportable Estimated GFR 27 L (59 - ) Glucose 183 H (65-110) mg/dL Lactic Acid 4.3 H* (0.7-2.0) mmol/L Calcium 9.6 (8.4-10.2) mg/dL Total Bilirubin 1.2 (0.2-1.3) mg/dL AST 149 H (14-36) U/L ALT 132 H (6-35) U/L Alkaline Phosphatase 114 (38-126) U/L Troponin I 0.078 H* (0.000-0.034) ng/mL NT-Pro-B Natriuret Pep 1760 H (19.9-100) pg/mL Total Protein 8.0 (6.3-8.2) g/dL Albumin 4.4 (3.5-5.1) g/dL Lipase 295 (23-300) U/L Urine Color (Yellow) Urine Appearance (Clear) Urine pH (5.0-9.0) Ur Specific [place] (1.001-1.035) Urine Protein (Negative) mg/dL Urine Glucose (UA) (Negative) mg/dL Urine Ketones (Negative) mg/dL Ur Blood (Man) (Negative) Urine Nitrate (Negative) Urine Bilirubin (Negative) Urine Urobilinogen (<2.0) mg/dL Leukocyte Esterase Rfl (Negative) GLEN/UL Urine RBC (0-2) /hpf Urine WBC (0-3) /hpf Ur Transition Epith Cell (None Seen) /hpf Urine Bacteria /hpf Nasal MRSA (PCR) Not detected (NOT DETECTE) Influenza A (RT-PCR) Negative (Negative) Influenza B (RT-PCR) Negative (Negative) RSV (RT-PCR) Negative (Negative) SARS-CoV-2 RNA (RT-PCR) Negative (Negative) 07/02/24 07/02/24 07/02/24 Range/Units 00:07 04:14 05:11 WBC 22.7 H (4.5-10.0) K/mm3 RBC 4.29 (4.2-5.4) M/mm3 Hgb 12.6 (12.0-15.0) g/dL Hct 40.6 (37.0-47.0) % MCV 94.6 (80-100) fl MCH 29.4 (26-34) pg MCHC 31.0 L (32-36) g/dl RDW 14.6 H (11.5-14.5) % Plt Count 422 H (150-375) k/mm3 MPV 10.2 (7.4-10.4) fl Immature Gran % (Auto) Not Reportable Neut % (Auto) Not Reportable Lymph % (Auto) Not Reportable Anson % (Auto) Not Reportable Eos % (Auto) Not Reportable Baso % (Auto) Not Reportable Lymph # (Auto) Not Reportable [place] # (Auto) Not Reportable Eos # (Auto) Not Reportable Baso # (Auto) Not Reportable Abs Immat Gran (auto) Not Reportable Absolute Neuts (auto) Not Reportable Absolute Nucleated RBC Not Reportable Total Counted 100 Neutrophils % (Manual) 68 (46-73) % Band Neutrophils % 10 H (0-6) % Lymphocytes % (Manual) 20.0 (18-44) % Monocytes % (Manual) 2 L (3-9) % Eosinophils % (Manual) (0-4) % Basophils % (Manual) (0-1) % Nucleated RBC % Not Reportable Abs Neuts (Manual) 17.70 H (1.7-7.2) K/mm3 Abs Lymphs (Manual) 4.54 H (1.1-4.5) K/mm3 Abs Monocytes (Manual) 0.45 (0.1-0.90) K/mm3 Absolute Eos (Manual) (0.02-0.50) K/mm3 Abs Basophils (Manual) (0.0-0.1) K/mm3 Nucleated RBCs 1 % Platelet Estimate Increased (Adequate) Large Platelets Present Giant Platelets Hypochromasia Anisocytosis 1+ Tear Drop Cells 1+ Blackwell Cells 1+ Schistocytes None seen PT (11.1-14.7) Seconds INR APTT (22.3-36.8) Seconds Sodium 154 H (137-145) mmol/L Potassium 3.4 (3.4-5.0) mmol/L Chloride 126 H (98-107) mmol/L Carbon Dioxide 22 (22-30) mmol/L Anion Gap 6 (4-12) mmol/L BUN 50 H (7-17) mg/dL Creatinine 1.80 H 1.70 H (0.7-1.0) mg/dL Estim Creat Clear Calc Not Reportable Not Reportable Estimated GFR 27 L 29 L (59 - ) Glucose 145 H (65-110) mg/dL Lactic Acid 1.8 (0.7-2.0) mmol/L Calcium 7.9 L (8.4-10.2) mg/dL Total Bilirubin 0.8 (0.2-1.3) mg/dL AST 94 H (14-36) U/L ALT 89 H (6-35) U/L Alkaline Phosphatase 91 (38-126) U/L Troponin I 0.118 H* D 0.112 H* (0.000-0.034) ng/mL NT-Pro-B Natriuret Pep (19.9-100) pg/mL Total Protein 6.0 L (6.3-8.2) g/dL Albumin 3.1 L (3.5-5.1) g/dL Lipase (23-300) U/L Urine Color (Yellow) Urine Appearance (Clear) Urine pH (5.0-9.0) Ur Specific [place] (1.001-1.035) Urine Protein (Negative) mg/dL Urine Glucose (UA) (Negative) mg/dL Urine Ketones (Negative) mg/dL Ur Blood (Man) (Negative) Urine Nitrate (Negative) Urine Bilirubin (Negative) Urine Urobilinogen (<2.0) mg/dL Leukocyte Esterase Rfl (Negative) GLEN/UL Urine RBC (0-2) /hpf Urine WBC (0-3) /hpf Ur Transition Epith Cell (None Seen) /hpf Urine Bacteria /hpf Nasal MRSA (PCR) (NOT DETECTE) Influenza A (RT-PCR) (Negative) Influenza B (RT-PCR) (Negative) RSV (RT-PCR) (Negative) SARS-CoV-2 RNA (RT-PCR) (Negative) 07/02/24 Range/Units 11:35 WBC (4.5-10.0) K/mm3 RBC (4.2-5.4) M/mm3 Hgb (12.0-15.0) g/dL Hct (37.0-47.0) % MCV (80-100) fl MCH (26-34) pg MCHC (32-36) g/dl RDW (11.5-14.5) % Plt Count (150-375) k/mm3 MPV (7.4-10.4) fl Immature Gran % (Auto) Neut % (Auto) Lymph % (Auto) Anson % (Auto) Eos % (Auto) Baso % (Auto) Lymph # (Auto) Anson # (Auto) Eos # (Auto) Baso # (Auto) Abs Immat Gran (auto) Absolute Neuts (auto) Absolute Nucleated RBC Total Counted Neutrophils % (Manual) (46-73) % Band Neutrophils % (0-6) % Lymphocytes % (Manual) (18-44) % Monocytes % (Manual) (3-9) % Eosinophils % (Manual) (0-4) % Basophils % (Manual) (0-1) % Nucleated RBC % Abs Neuts (Manual) (1.7-7.2) K/mm3 Abs Lymphs (Manual) (1.1-4.5) K/mm3 Abs Monocytes (Manual) (0.1-0.90) K/mm3 Absolute Eos (Manual) (0.02-0.50) K/mm3 Abs Basophils (Manual) (0.0-0.1) K/mm3 Nucleated RBCs % Platelet Estimate (Adequate) Large Platelets Giant Platelets Hypochromasia Anisocytosis Tear Drop Cells [place] Cells Schistocytes PT (11.1-14.7) Seconds INR APTT (22.3-36.8) Seconds Sodium (137-145) mmol/L Potassium (3.4-5.0) mmol/L Chloride (98-107) mmol/L Carbon Dioxide (22-30) mmol/L Anion Gap (4-12) mmol/L BUN (7-17) mg/dL Creatinine (0.7-1.0) mg/dL Estim Creat Clear Calc Estimated GFR (59 - ) Glucose (65-110) mg/dL Lactic Acid (0.7-2.0) mmol/L Calcium (8.4-10.2) mg/dL Total Bilirubin (0.2-1.3) mg/dL AST (14-36) U/L ALT (6-35) U/L Alkaline Phosphatase (38-126) U/L Troponin I (0.000-0.034) ng/mL NT-Pro-B Natriuret Pep (19.9-100) pg/mL Total Protein (6.3-8.2) g/dL Albumin (3.5-5.1) g/dL Lipase (23-300) U/L Urine Color Yellow (Yellow) Urine Appearance Sl cloudy (Clear) Urine pH 5.5 (5.0-9.0) Ur Specific [place] 1.020 (1.001-1.035) Urine Protein 2+ H (Negative) mg/dL Urine Glucose (UA) Negative (Negative) mg/dL Urine Ketones Negative (Negative) mg/dL Ur Blood (Man) 3+ H (Negative) Urine Nitrate Negative (Negative) Urine Bilirubin 1+ H (Negative) Urine Urobilinogen 0.2 (<2.0) mg/dL Leukocyte Esterase Rfl Trace H (Negative) GLEN/UL Urine RBC 6-10 H (0-2) /hpf Urine WBC 0-5 (0-3) /hpf Ur Transition Epith Cell Few H (None Seen) /hpf Urine Bacteria 1+ /hpf Nasal MRSA (PCR) (NOT DETECTE) Influenza A (RT-PCR) (Negative) Influenza B (RT-PCR) (Negative) RSV (RT-PCR) (Negative) SARS-CoV-2 RNA (RT-PCR) (Negative) <Flora Velasquez MD - Last Filed: 07/02/24 06:44> Imaging Data Attestation: I personally reviewed and interpreted this imaging study as follows: < Hiwot Duque MD - Last Filed: 07/02/24 20:36> Radiologist's impression: ITS Impressions Chest/Abdomen/Pelvis CTA 07/01/24 21:35 IMPRESSION: No acute pulmonary embolus. No acute intrathoracic process detected. 4.1 cm right thyroid mass. Consider nonemergent, outpatient thyroid ultrasound for further characterization, if/when clinically appropriate. 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 Moderate volume free pelvic fluid is of a similar density and may also represent bile. Recommend MR MRCP without and with contrast for further evaluation. Indeterminate 1.6 cm left adrenal nodule. Indeterminate 1.6 cm right midpole renal lesion. Long segment sigmoid wall thickening in an area of pronounced diverticulosis. Early diverticulitis or colitis could have this appearance. A colonic mass is not excluded, consider endoscopy referral if/when clinically appropriate. Bladder wall edema, as can be seen with cystitis. ADDENDUM: 07/01/24 0275 For further clarification, infected bile and/or hemorrhage may be present in the subcapsular and pelvic fluid collections. Results reported telephonically to Dr. Velasquez by Dr. Gill at 11:20 PM on 07/01/2024. Abdomen X-Ray 07/02/24 06:02 IMPRESSION: 1. Nasogastric tube tip in the distal stomach. <Hiwot Duque MD - Last Filed: 07/02/24 20:36> ITS Impressions Chest/Abdomen/Pelvis CTA 07/01/24 21:35 IMPRESSION: No acute pulmonary embolus. No acute intrathoracic process detected. 4.1 cm right thyroid mass. Consider nonemergent, outpatient thyroid ultrasound for further characterization, if/when clinically appropriate. 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 Moderate volume free pelvic fluid is of a similar density and may also represent bile. Recommend MR MRCP without and with contrast for further evaluation. Indeterminate 1.6 cm left adrenal nodule. Indeterminate 1.6 cm right midpole renal lesion. Long segment sigmoid wall thickening in an area of pronounced diverticulosis. Early diverticulitis or colitis could have this appearance. A colonic mass is not excluded, consider endoscopy referral if/when clinically appropriate. Bladder wall edema, as can be seen with cystitis. ADDENDUM: 07/01/24 2324 For further clarification, infected bile and/or hemorrhage may be present in the subcapsular and pelvic fluid collections. Results reported telephonically to Dr. Velasquez by Dr. Gill at 11:20 PM on 07/01/2024. Abdomen X-Ray 07/02/24 06:02 IMPRESSION: 1. Nasogastric tube tip in the distal stomach. <Flora Velasquez MD - Last Filed: 07/02/24 06:44> Critical Care Time Critical Care Time Critical Care Time: Yes <Hiwot Duque MD - Last Filed: 07/02/24 20:36> Total Critical Care Time: 75 <Hiwot Duque MD - Last Filed: 07/02/24 20:36> 65 (Please refer to [facility] for attestation.) <Flora Velasquez MD - Last Filed: 07/02/24 06:44> Discharge Plan Discharge Clinical Impression: Biliary tract neoplasm, Septic shock, Colon wall thickening, Free fluid in pelvis, Bile leak, Acute hypernatremia, Transaminitis, SHAHBAZ (acute kidney injury), Non-ST elevation PA (NSTEMI) Dementia Qualifiers: Dementia type: unspecified type Dementia severity: unspecified severity D ementia behavioral or psychological symptom: with other behavioral disturbance Q ualified Code(s): F03.918 - Unspecified dementia, unspecified severity, with other behavioral disturbance <Hiwot Duque MD - Last Filed: 07/02/24 20:36> Patient Disposition: Acute [facility] <Hiwot Duque MD - Last Filed: 07/02/24 20:36> Condition: Terminal <Hiwot Duque MD - Last Filed: 07/02/24 20:36> Time of Disposition: 02:25 <Hiwot Duque MD - Last Filed: 07/02/24 20:36> 02:25 <Flora Velasquez MD - Last Filed: 07/02/24 06:44>
[2024-07-01 19:57] VITALS: BP 114/65; PULSE 142; RESP 24; TEMP 36.6; O2SAT 94
[2024-07-01] MEDS: SODIUM CHLORIDE 0.9% IV 1,000 ML 999 ML IV CONT ×3 (20:06→22:20)
[2024-07-01 20:16] LABS: Hematocrit 39.5 % (37.0-47.0); Hemoglobin 12.3 g/dL (12.0-15.0); Mean Corpuscular HGB Conc 31.1 g/dl (32-36); Mean Corpuscular Hemoglobin 29.4 pg (26-34); Mean Corpuscular Volume 94.5 fl (80-100); Mean Platelet Volume 10.7 fl (7.4-10.4); Platelet Count Result 458 k/mm3 (150-375); Red Blood Count 4.18 M/mm3 (4.2-5.4); Red Cell Distribution Width 14.6 % (11.5-14.5)
[2024-07-01 20:34] LABS: Albumin Level 4.4 g/dL (3.5-5.1); Alkaline Phosphatase 114 U/L (38-126); Anion Gap 15 mmol/L (4-12); Aspartate Amino Transferase 149 U/L (14-36); Bilirubin,Total 1.2 mg/dL (0.2-1.3); Blood Urea Nitrogen 46 mg/dL (7-17); Calcium 9.6 mg/dL (8.4-10.2); Carbon Dioxide 23 mmol/L (22-30); Chloride 118 mmol/L (98-107); Estimated Glomerular Filt Rate 27; Glucose 183 mg/dL (65-110); Lipase 295 U/L (23-300); Potassium 3.4 mmol/L (3.4-5.0); Sodium 156 mmol/L (137-145)
[2024-07-01 20:36] LABS: Alanine Aminotransferase 132 U/L (6-35); Band Neutrophils Percent 1 % (0-6); Basophils Percent Manual 0 % (0-1); Eosinophils Percent Manual 0 % (0-4); Giant Platelets Present; Large Platelets Present; Lymphocytes Absolute Manual 1.74 K/mm3 (1.1-4.5); Lymphocytes Percent Manual 6 % (18-44); Monocytes Absolute Manual 1.74 K/mm3 (0.1-0.90); Monocytes Percent Manual 6 % (3-9); Neutrophils Absolute Manual 25.52 K/mm3 (1.7-7.2); Neutrophils Percent Manual 87 % (46-73); Platelet Estimate Increased (Adequate); Total Cells Counted 100
[2024-07-01 20:37] LABS: Anisocytosis 1+; Hypochromasia 1+
[2024-07-01 20:38] LABS: Schistocytes None Seen
[2024-07-01 21:16] LABS: NT Pro B Type Natriuretic Pept 1760 pg/mL (19.9-100)
[2024-07-01 21:21] LABS: INR 1.2; Prothrombin Time 15.9 Seconds (11.1-14.7)
[2024-07-01 21:22] LABS: Partial Thromboplastin Time 22.6 Seconds (22.3-36.8)
[2024-07-01 21:31] LABS: Influenza A QL RT-PCR Negative (Negative); Influenza B QL RT-PCR Negative (Negative); RSV RNA, RT-PCR Negative (Negative); SARS-CoV-2 RNA PCR Negative (Negative)
[2024-07-01 22:01] LABS: Troponin I 0.078 ng/mL (0.000-0.034)
[2024-07-01 22:06] LABS: Lactic Acid Reflex 4.3 mmol/L (0.7-2.0)
--- NOTE | 2024-07-01 22:36 | PC.NURSE ---
This RN tried to straight cath the pt. This RN could not get the catheter in and pt asked to stop. EDP made aware.
[2024-07-01 22:48] VITALS: BP 155/88; PULSE 110; RESP 20; O2SAT 99
--- NOTE | 2024-07-01 22:49 | PC.NURSE ---
Tech bladder scanned pt. pt has 214mL in bladder.
[2024-07-01] MEDS: CEFEPIME 2 GM/NS 50 ML 2 GM/50 ML BAG IVPB (23:05)
[2024-07-01 23:52] LABS: Reflex Lactic Acid Yes or No Add Lactic
[2024-07-02] VITALS (35 sets, daily range): BP systolic 91–134; BP diastolic 65–95; PULSE 101–134; RESP 16–36; TEMP 36.5; O2SAT 94–100
[2024-07-02 00:20] LABS: MRSA (PCR) NOT DETECTED (NOT DETECTE)
[2024-07-02 00:28] LABS: Lactic Acid 1.8 mmol/L (0.7-2.0)
[2024-07-02] MEDS: VANCOMYCIN 750 MG/NS 250 ML 750 MG/250 ML BAG 250 MG IVPB (00:43)
[2024-07-02 00:51] LABS: Troponin I 0.118 ng/mL (0.000-0.034)
[2024-07-02] MEDS: MIDAZOLAM HCL (*CRX) 2 MG/2 ML VIAL 1 MG IV PUSH (02:40)
[2024-07-02] MEDS: LACTATED RINGERS 1,000 ML 100 ML IV CONT (03:06)
[2024-07-02] MEDS: metroNIDAZOLE 500 MG/ISO 100ML 500 MG/100 ML BAG 100 MG IVPB (04:19)
[2024-07-02 04:20] LABS: Hematocrit 40.6 % (37.0-47.0); Hemoglobin 12.6 g/dL (12.0-15.0); Mean Corpuscular Hemoglobin 29.4 pg (26-34); Mean Corpuscular Volume 94.6 fl (80-100); Mean Platelet Volume 10.2 fl (7.4-10.4); Platelet Count Result 422 k/mm3 (150-375); Red Blood Count 4.29 M/mm3 (4.2-5.4); Red Cell Distribution Width 14.6 % (11.5-14.5); White Blood Count 22.7 K/mm3 (4.5-10.0)
[2024-07-02 04:30] LABS: Alanine Aminotransferase 89 U/L (6-35); Albumin Level 3.1 g/dL (3.5-5.1); Alkaline Phosphatase 91 U/L (38-126); Anion Gap 6 mmol/L (4-12); Aspartate Amino Transferase 94 U/L (14-36); Bilirubin,Total 0.8 mg/dL (0.2-1.3); Blood Urea Nitrogen 50 mg/dL (7-17); Calcium 7.9 mg/dL (8.4-10.2); Carbon Dioxide 22 mmol/L (22-30); Chloride 126 mmol/L (98-107); Estimated Glomerular Filt Rate 27; Glucose 145 mg/dL (65-110); Potassium 3.4 mmol/L (3.4-5.0); Sodium 154 mmol/L (137-145)
[2024-07-02 04:35] LABS: Band Neutrophils Percent 10 % (0-6); Lymphocytes Absolute Manual 4.54 K/mm3 (1.1-4.5); Monocytes Absolute Manual 0.45 K/mm3 (0.1-0.90); Monocytes Percent Manual 2 % (3-9); Neutrophils Percent Manual 68 % (46-73); Platelet Estimate Increased (Adequate); Total Cells Counted 100
[2024-07-02 04:36] LABS: Nucleated Red Blood Cells 1 %; Schistocytes None Seen
[2024-07-02 04:37] LABS: Anisocytosis 1+; Burr Cells 1+; Large Platelets Present; Tear Drop Cells 1+
[2024-07-02 04:43] LABS: Troponin I 0.112 ng/mL (0.000-0.034)
[2024-07-02 06:17] LABS: Estimated Glomerular Filt Rate 29
[2024-07-02] MEDS: LACTATED RINGERS 1,000 ML 999 ML IV CONT ×2 (10:40)
[2024-07-02 11:52] LABS: Appearance Urine Sl Cloudy (Clear); Color Urine Yellow (Yellow); pH Urine 5.5 (5.0-9.0)
[2024-07-02 11:53] LABS: Add Urine Microscopic? YES; Bilirubin Urine 1+ (Negative); Blood Urine 3+ (Negative); Glucose Urine UA Negative (Negative); Ketones Urine Negative (Negative); Leukocyte Esterase Ur Trace LEU/UL (Negative); Nitrate Urine Negative (Negative); Protein Urine 2+ mg/dL (Negative); Urobilinogen Urine 0.2 mg/dL (<2.0)
[2024-07-02 11:54] LABS: Transitional Epi Cells Urine Few /hpf (None Seen); WBC Urine 0-5 /hpf (0-3)
[2024-07-02 11:55] LABS: Bacteria Urine 1+ /hpf
--- NOTE | 2024-07-02 14:48 | PCCCNOTE ---
Called by ER for hospice referral on pt. Pt non verbal at present. Spoke with sister (POA) regarding hospice. POA does want comfort measures and hospice started. [facility] called and referral made. Admission nurse in building and will be available to evaluate for GIP status. Charge nurse notified.
[2024-07-02] MEDS: ARTIFICIAL TEARS OPHTH SOLN 15 ML BOTTLE EACH EYE (18:00)
[2024-07-02] MEDS: HYDROmorphone HCL/PF (*CRX) 50 MG in SODIUM CHLORIDE 0.9% IV 95 ML IV CONT (18:29)
[2024-07-02] MEDS: LORazepam INJ (*CRX) 2 MG/ML VIAL 1 MG IV PUSH (19:58)
[2024-07-03] MEDS: LORazepam INJ (*CRX) 2 MG/ML VIAL 1 MG IV PUSH (02:44)
--- NOTE | 2024-07-03 04:40 | PC.NURSE ---
Entered patient's room to discover patient with no pulse or respirations. Charge nurse called to bedside to verify.
--- NOTE | 2024-07-03 05:40 | PC.NURSE ---
CALLED TO 3M TO CONFIRM PT . TIME OF CALLED AT 3704
--- NOTE | 2024-07-03 09:57 | P.HP_ITS ---
H&P: HPI History of Present Illness Date/Time: 07/03/24 09:57 Chief Complaint: abdominal pain Narrative: 78-year-old female presented from [facility] after complaining of abdominal pain. Upon arrival to emergency department she had a soft blood pressure and the lactic acid 4.3. She was given broad-spectrum antibiotics and IV fluids and lactic acid improved to 1.8. Imaging revealed: CT angio chest/abdomen/pelvis with IV contrast which was independently interpreted by me revealing: No acute pulmonary embolus. No acute intrathoracic process detected. 4.1 cm right thyroid mass. Consider nonemergent, outpatient thyroid ultrasound for further characterization, if/when clinically appropriate. 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 Moderate volume free pelvic fluid is of a similar density and may also represent bile. Recommend MR MRCP without and with contrast for further evaluation. Indeterminate 1.6 cm left adrenal nodule. Indeterminate 1.6 cm right midpole renal lesion. Long segment sigmoid wall thickening in an area of pronounced diverticulosis. Early diverticulitis or colitis could have this appearance. A colonic mass is not excluded, consider endoscopy referral if/when clinically appropriate. Bladder wall edema, as can be seen with cystitis. Labs revealed elevated troponin and transaminases and creatinine along with leukocytosis at 22.7 K. EKG was consistent with anterior wall ischemia without ST elevation. 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 She was admitted to hospice service . Review of Systems Review of Systems: ROS unobtainable: Yes unobtainable due to medical condition [facility] Past Medical History Medical History Thrombocytosis Hyperlipidemia Vitamin D deficiency Vascular dementia B12 deficiency Essential (primary) hypertension Surgical History Surgical History H/O cataract extraction Family History Family History Father Cancer of unknown origin Social History Social History Smoking status: Current some day smoker Tobacco type: cigarettes Second hand tobacco smoke exposure: No Alcohol intake: unknown Substance use: unknown Spiritual care concerns: No Meds Home Medications and Allergies Home Medications ?Medication ?Instructions ?Recorded ?Confirmed ?Type aspirin 81 mg tablet,delayed 81 mg PO DAILY 11/01/21 06/28/22 History release fluoxetine 20 mg capsule 20 mg PO DAILY #90 caps 02/22/22 06/28/22 Rx hydrochlorothiazide 25 mg tablet 25 mg PO DAILY #90 tabs 02/22/22 06/28/22 Rx metoprolol succinate 50 mg 50 mg PO DAILY #90 tabs 02/22/22 06/28/22 Rx tablet,extended release 24 hr memantine 5 mg tablet 5 mg PO QAM #90 tabs 05/10/22 06/28/22 Rx lorazepam 0.5 mg tablet 0.5 mg PO .QHS PRN sleep #30 tabs 06/24/22 06/28/22 Rx lisinopril 10 mg tablet 10 mg PO DAILY #30 tabs 07/29/22 Rx cephalexin 500 mg capsule 500 mg PO Q12H #14 caps 04/13/24 Rx Allergies Allergy/AdvReac Type Severity Reaction Status Date / Time alendronate sodium Allergy Unknown rash Verified 12/23/21 13:45 aspirin Allergy Other Verified 03/31/23 05:32 [id number]-[id number] Reductase AdvReac Unknown Nausea And Verified 02/18/23 13:25 Inhibitor ([id number]-[id number] Vomiting Reductase Inhibitor) Vital Signs Vital Signs - 24 hr 07/02/24 10:01 07/02/24 11:01 07/02/24 11:30 Temperature Pulse Rate 127 H 119 H 116 H Respiratory Rate 35 H 33 H 31 H Blood Pressure 111/88 119/65 121/77 Pulse Oximetry 100 100 99 Oxygen Delivery Oxygen Flow Rate 07/02/24 12:15 07/02/24 12:30 07/02/24 12:45 Temperature Pulse Rate 105 H 101 H 106 H Respiratory Rate 29 H 28 H 28 H Blood Pressure 126/68 134/75 133/70 Pulse Oximetry 97 100 100 Oxygen Delivery Oxygen Flow Rate 07/02/24 13:00 07/02/24 13:15 07/02/24 13:31 Temperature Pulse Rate 114 H 115 H 114 H Respiratory Rate 29 H 31 H 29 H Blood Pressure 126/72 121/92 H 119/87 Pulse Oximetry 99 99 99 Oxygen Delivery Oxygen Flow Rate 07/02/24 13:46 07/02/24 14:01 07/02/24 14:16 Temperature Pulse Rate 118 H 119 H 120 H Respiratory Rate 29 H 30 H 30 H Blood Pressure 125/84 113/81 123/76 Pulse Oximetry 97 99 98 Oxygen Delivery Oxygen Flow Rate 07/02/24 14:31 07/02/24 15:16 07/02/24 15:31 Temperature Pulse Rate 120 H 120 H 122 H Respiratory Rate 28 H 31 H 32 H Blood Pressure 123/83 105/78 104/83 Pulse Oximetry 98 98 98 Oxygen Delivery Oxygen Flow Rate 07/02/24 15:46 07/02/24 16:01 07/02/24 16:16 Temperature Pulse Rate 121 H 123 H 123 H Respiratory Rate 31 H 29 H 31 H Blood Pressure 117/71 110/82 119/81 Pulse Oximetry 99 99 99 Oxygen Delivery Oxygen Flow Rate 07/02/24 18:01 07/02/24 18:29 07/02/24 18:32 Temperature Pulse Rate 122 H 122 H 121 H Respiratory Rate 31 H 30 H 29 H Blood Pressure 99/74 L 102/68 Pulse Oximetry 97 97 Oxygen Delivery Oxygen Flow Rate 07/02/24 20:00 07/02/24 20:35 07/03/24 04:13 Temperature 97.7 F Pulse Rate 123 H Respiratory Rate 16 Blood Pressure 91/68 L Pulse Oximetry 100 100 Oxygen Delivery Nasal Cannula Room Air Oxygen Flow Rate 4 Exam Narrative: Fired prior to my examination H&P: Results Labs Labs: Urine 07/02/24 Range/Units 11:35 Urine Color Yellow (Yellow) Urine Appearance Sl cloudy (Clear) Urine pH 5.5 (5.0-9.0) Ur Specific [place] 1.020 (1.001-1.035) Urine Protein 2+ H (Negative) mg/dL Urine Glucose (UA) Negative (Negative) mg/dL Assessment and Plan Assessment and plan (1) Hospice care: Code(s): Z51.5 - Encounter for palliative care Status: Acute Assessment and Plan: * Meet inpatient hospice criteria due to requiring continuous IV hydromorphone for control of pain and restlessness * PRN palliative regimen ordered (2) Non-ST elevation AR (NSTEMI): Code(s): I21.4 - Non-ST elevation (NSTEMI) myocardial infarction Status: Acute (3) SHAHBAZ (acute kidney injury): Code(s): N17.9 - Acute kidney failure, unspecified Status: Acute (4) Transaminitis: Code(s): R74.01 - Elevation of levels of liver transaminase levels Status: Acute (5) Acute hypernatremia: Code(s): E87.0 - Hyperosmolality and hypernatremia Status: Acute (6) Bile leak: Code(s): K83.9 - Disease of biliary tract, unspecified Status: Acute (7) Free fluid in pelvis: Code(s): R18.8 - Other ascites Status: Acute (8) Colon wall thickening: Code(s): K63.9 - Disease of intestine, unspecified Status: Acute (9) Septic shock: Code(s): A41.9 - Sepsis, unspecified organism; R65.21 - Severe sepsis with septic shock Status: Acute (10) Biliary tract neoplasm: Code(s): D49.0 - Neoplasm of unspecified behavior of digestive system Status: Acute (11) Dementia: Qualifiers: Dementia behavioral or psychological symptom: with other behavioral disturbance Dementia severity: unspecified severity Dementia type: unspecified type Qualified Code(s): F03.918 - Unspecified dementia, unspecified severity, with other behavioral disturbance Code(s): F03.90 - Unspecified dementia, unspecified severity, without behavioral disturbance, psychotic disturbance, mood disturbance, and anxiety Status: Chronic
--- NOTE | 2024-07-03 09:57 | PM.DDS ---
Discharge Summary Date and Time Date of : 07/03/24 Time of : 04:40 Provider Pronounced By: 2 RNs Name of First RN That Pronounced: HERBIE HOWELL RN Name of Second RN That Pronounced: BLAINE CONTRERAS RN Probable Cause of Probable Cause of : Sepsis due to bile leak with likely bile duct neoplasm Summary Hospital Course: Admitted to inpatient hospice service. Medications were titrated to comfort. Ms. Gonzalez peacefully. Additional Data Confirmation of as documented by pronouncing clinician: Pupillary Reflex, Palpable Pulses, Response to Stimuli, Heart Tones and Breath Sounds Name of Provider Notified: MELISSA CARD Time Provider Notified: 05:34 Provider Requests Autopsy: No Family Requests Autopsy: No [employer] Resource [employer]or Notified: Yes Date [facility] Notified of : 07/03/24 Time [facility] Notified of : 05:04
== END 2024-07-03 04:40 | disposition expired | DRG 951 ==
LOC: ANHED 07-02 14:18 → ANH3MEDSUR 07-02 16:51 → ANH3MED 07-03 06:32 → ANH3MEDSUR 07-05 11:02
PROVIDERS: Emergency Medicine; Admitting Provider Internal Medicine; Emergency Provider Emergency Medicine; PCP Family Medicine; Visit Provider Internal Medicine
DX: Z51.5 Encounter for palliative care (principal); A41.9 Sepsis, unspecified organism; I21.4 Non-ST elevation (NSTEMI) myocardial infarction; K83.2 Perforation of bile duct; N17.9 Acute kidney failure, unspecified; E87.0 Hyperosmolality and hypernatremia; R18.8 Other ascites; K83.9 Disease of biliary tract, unspecified; D49.0 Neoplasm of unspecified behavior of digestive system
CPT/HCPCS: 36415; 71275; 74177; 80053; 81001; 82565; 83605; 83690; 83880; 84484; 85025; 85610; 85730; 87040; 87045; 87427; 87449; 87637; 87641; 93005; 99285; A9270; J0692; J1171; J1836; J2060; J2250; J3370; J7030; J7120; Q9967